=== PATIENT | female | born 1975 | race Caucasian/White ===

== ENCOUNTER 2017-03-03 00:30 | Emergency (ER) | payer OTHER ==
--- NOTE | 2017-03-03 00:34 | PDOC ---
History of Present Illness - General Chief Complaint: Pain, Acute Stated Complaint: UPPER ABDOMINAL PAIN Time Seen by Provider: 03/03/17 00:33 History Source: Patient Exam Limitations: No Limitations - History of Present Illness Initial Comments: 03/03/17 00:56 This is a 41-year-old female who comes in complaining of approximately 3 hours of abdominal pain. Patient has a history significant for Crohn's disease and had 4 bowel resections secondary to Crohn's disease. Patient has had several partial bowel obstructions as result of adhesions and her Crohn's disease as well. Patient comes in now complaining of lower abdominal pain that is consistent with obstruction secondary to her Crohn's disease however she is also complaining of some additional pain that is not typical for her in the epigastric area. Patient said pain is associated with nausea and vomiting 3. Patient has Percocet at home which she took for the pain but vomited it. PAST MEDICAL HISTORY: As per history of present illness PAST SURGICAL HISTORY: As per history of present illness FAMILY HISTORY: no pertinant history SOCIAL HISTORY: Pt lives with family and is employed. MEDICATIONS: reviewed ALLERGIES: As per nursing notes Review of Systems General: No fevers or chills, no weakness, no weight loss HEENT: No change in vision. No sore throat,. No ear pain CardioVascular: No chest pain or shortness of breath Respiratory:No cough, or wheezing. Gastrointestinal: Positive nausea, vomiting, abdominal pain. There is no diarrhea Genitourinary: No dysuria, hematuria, or frequency Musculoskeletal: No joint or muscle pain or swelling Neurologic: No headache, vertigo, dizziness or loss of consciousness Psychiatric: nor depression Skin: No rashes or easy bruising Endocrine: no increased thirst or abnormal weight change Allergic: no skin or latex allergy All other systems reviewed and normal Exam: General: Well-nourished well-developed individual, no acute distress HEENT: Throat: Normal, tonsils normal, no erythema or exudate Neck: Supple, no meningeal signs, no lymphadenopathy Eyes::Pupils equal reactive and round, extraocular motion intact Chest: Nontender to palpation Cardiac: S1-S2 normal, regular rate and rhythm, no murmurs rubs or gallops Respiratory: Lungs clear to auscultation bilateral Abdomen: Soft, nondistended, bowel sounds are present, there is tenderness on palpation lower abdomen without guarding or rebound in addition to that there is some mild tenderness epigastric area no guarding or rebound Extremities: Warm, dry, no cyanosis, clubbing, or edema Skin: No rashes Neuro: Alert and oriented x3, nonfocal exam, grossly intact, normal gait Psych: Normal mood and affect 03/03/17 02:04 Abdominal x-ray flat and upright no dilated loops of bowel paucity of air?? Constipation. Assessment and plan: This is a 41-year-old female who has a long history of Crohn's with multiple abdominal surgeries. Patient comes in complaining of severe abdominal pain. Patient was given pain medications and antiemetics and fluids and lab work was done. Patient's workup was negative for any acute pathology. Patient felt much better after medication and fluids. Patient tolerating by mouth's. Patient has a GI doctor that she can follow-up with tomorrow morning Patient discharged home Past History - Past Medical History Allergies/Adverse Reactions: Allergies Allergy/AdvReac Type Severity Reaction Status Date / Time NSAIDS (Non-Steroidal Allergy Verified 03/03/17 00:35 Anti-Inflamma sumatriptan [From Imitrex] Allergy Verified 03/03/17 00:36 sumatriptan succinate Allergy Verified 03/03/17 00:36 [From Imitrex] Home Medications: Ambulatory Orders Budesonide [ENTOCORT EC (Nf) -] 9 mg PO DAILY 03/03/17 Mercaptopurine [Purinethol -] 75 mg PO DAILY 03/03/17 Mesalamine [Apriso] 0.375 gm PO DAILY 03/03/17 ED Treatment Course - LABORATORY CBC & Chemistry Diagram: 03/03/17 01:23 03/03/17 00:45 *DC/Admit/Observation/Transfer Diagnosis at time of Disposition: Abdominal pain Qualifiers: Abdominal location: lower abdomen, unspecified Qualified Code(s): R10.30 - Lower abdominal pain, unspecified - Discharge Dispostion Disposition: HOME Condition at time of disposition: Stable Admit: No - Patient Instructions Additional Instructions: Continue your medications as prescribed. Call your GI doctor in the morning and follow-up with your doctor. Return to the emergency department immediately with ANY new, persistent or worsening symptoms. Continue any medications as previously prescribed by your physician. You should follow up with your primary doctor as soon as possible regarding today's emergency department visit. . Please make sure your doctor reviews the results of your emergency evaluation. Thank you for coming to the Emergency Department today for your care. It was a pleasure to see you today. Please note that your evaluation is INCOMPLETE until you follow-up with your doctor.
[2017-03-03] MEDS ORDERED: SODIUM CHLORIDE 1,000 ML IV ONE (00:44)
[2017-03-03] MEDS ORDERED: HYDROmorphone HCL CARPU-JECT 1 MG/1 ML DISP.SYRIN IVPUSH ONE ×2 (00:44→00:52)
[2017-03-03 00:50] VITALS: TEMP 98; BMI 21.1
[2017-03-03] MEDS ORDERED: ONDANSETRON 4 MG/2 ML VIAL IVPB ONE (00:54)
[2017-03-03] MEDS ORDERED: HYDROmorphone HCL CARPU-JECT 2 MG/1 ML DISP.SYRIN ONE (00:54)
[2017-03-03] MEDS ORDERED: HYDROmorphone HCL CARPU-JECT 1 MG/1 ML DISP.SYRIN ONE (00:55)
[2017-03-03] MEDS ORDERED: METOCLOPRAMIDE HCL INJECTION 10 MG/2 ML VIAL IVPUSH ONE (01:02)
[2017-03-03 01:40] LABS: BASOPHIL 1.2 % (0-2.0); EOSINOPHIL 0.8 % (0-4.5); MCH 32.4 pg (25.7-33.7); MCHC 33.6 g/dl (32.0-36.0); MEAN CELL VOLUME 96.5 fl (80-96); MEAN PLT VOLUME 7.6 fl (7.5-11.1); NEUTROPHILS 65.4 % (42.8-82.8); PLATELET COUNT 349 K/MM3 (134-434); RDW 14.6 % (11.6-15.6); WHITE BLOOD COUNT 6.8 K/mm3 (4.0-10.0)
[2017-03-03] MEDS ORDERED: ONDANSETRON 4 MG/2 ML VIAL ONE (01:48)
[2017-03-03] MEDS ORDERED: ONDANSETRON 4 MG/2 ML VIAL IVPUSH ONE (01:52)
[2017-03-03 01:56] VITALS: BP 116/59; PULSE 85
[2017-03-03 02:03] LABS: ALBUMIN 3.7 g/dl (3.4-5.0); ALK PHOS 50 U/L (45-117); ANION GAP 9 (8-16); BILIRUBIN,TOTAL 0.3 mg/dL (0.2-1.0); CALCIUM 9.2 mg/dL (8.5-10.1); CO2 25 mmol/L (21-32); CREATININE 0.6 mg/dL (0.55-1.02); GLUCOSE,RANDOM 112 mg/dL (74-106); SGOT/AST 30 U/L (15-37); SGPT/ALT 77 U/L (12-78); TOT PROT 6.5 g/dl (6.4-8.2)
[2017-03-03] MEDS ORDERED: ACETAMINOPHEN 325 MG TABLET (FP) PO PRN (10:33)
[2017-03-03] MEDS ORDERED: ONDANSETRON 4 MG/2 ML VIAL IVPB PRN (10:46)
[2017-03-03] MEDS ORDERED: METOCLOPRAMIDE HCL INJECTION 10 MG/2 ML VIAL IVPUSH PRN (11:04)
[2017-03-03] MEDS ORDERED: ACETAMINOPHEN 1000 MG/100 ML VIAL (NON FORMULARY) IVPB ONE (11:05)
[2017-03-03] MEDS ORDERED: LACTATED RINGERS SOLUTION 1,000 ML IV SCH (11:15)
--- NOTE | 2017-03-03 11:25 | HP ---
CHIEF COMPLAINT: Severe abdominal pain, vomiting PCP: GI: Dr. Nicole HISTORY OF PRESENT ILLNESS: This 41 year old pt presents for the second time in 24 hours with c/o abd pain 10/10 sharp pain with irretractable vomiting. she states she has a significant history of abd pain, Chron's, small bowel obstructions, intestional resections. She presented last evening where she received several doses of dilaudid, zofran , and IVF with an AXR to r/o obstruction. Pt refused CT of her abd because she "do not want radiation ~ my brother of leukemia induced by too many CT". She was then discharged to home feeling much better. Several hours later pt returned to ER with same complaints. She is requesting more dilaudid and something for nausea. when ER approached pt re: the need for a CT she again refused and requested a MRI. Her GI physician is associated with Dr. Bah who sees pt her and requested to see him Pt denies any fever, chills, diarrhea, but is found to be vomiting food particles (states last meal is yesterday evening ~ lasagna) I explained that in order to continue to treat her for her pain and vomiting we would need to do a CT and then she agreed to have one for evaluation of her abdomin pain. Her I stop is not noted for excess opiates in [facility]. she states she typically goes to [facility] in [place] and [facility] ER for her pain and evaluation of Er but her "GI doctor said to come here since he was affiliated" I have no tests or notes to compare patients symptoms and treatment course. ER course was notable for: (1) AXR neg for obstruction (2) zofran and dilaudid for pain (3) PAST MEDICAL HISTORY: PAST SURGICAL HISTORY: Social History: Smoking: Alcohol: Drugs: Family History: Allergies NSAIDS (Non-Steroidal Anti-Inflamma Allergy (Verified 03/03/17 05:10) sumatriptan [From Imitrex] Allergy (Verified 03/03/17 05:10) sumatriptan succinate [From Imitrex] Allergy (Verified 03/03/17 05:10) HOME MEDICATIONS: Home Medications Medication Instructions Recorded Budesonide [ENTOCORT EC (Nf) -] 9 mg PO DAILY 03/03/17 Mercaptopurine [Purinethol -] 75 mg PO DAILY 03/03/17 Mesalamine [Apriso] 0.375 gm PO DAILY 03/03/17 REVIEW OF SYSTEMS CONSTITUTIONAL: Absent: fever, chills, diaphoresis, generalized weakness, malaise, loss of appetite, weight change HEENT: Absent: rhinorrhea, nasal congestion, throat pain, throat swelling, difficulty swallowing, mouth swelling, ear pain, eye pain, visual changes CARDIOVASCULAR: Absent: chest pain, syncope, palpitations, irregular heart rate, lightheadedness , peripheral edema RESPIRATORY: Absent: cough, shortness of breath, dyspnea with exertion, orthopnea, wheezing, stridor, hemoptysis GASTROINTESTINAL: Absent: abdominal pain, abdominal distension, nausea, vomiting, diarrhea, constipation, melena, hematochezia GENITOURINARY: Absent: dysuria, frequency, urgency, hesitancy, hematuria, flank pain, genital pain MUSCULOSKELETAL: Absent: myalgia, arthralgia, joint swelling, back pain, neck pain SKIN: Absent: rash, itching, pallor HEMATOLOGIC/IMMUNOLOGIC: Absent: easy bleeding, easy bruising, lymphadenopathy, frequent infections ENDOCRINE: Absent: unexplained weight gain, unexplained weight loss, heat intolerance, cold intolerance NEUROLOGIC: Absent: headache, focal weakness or paresthesias, dizziness, unsteady gait, seizure, mental status changes, bladder or bowel incontinence PSYCHIATRIC: Absent: anxiety, depression, suicidal or homicidal ideation, hallucinations. PHYSICAL EXAMINATION Vital Signs - 24 hr 03/03/17 03/03/17 00:44 01:55 Temperature 98 F Pulse Rate 80 Pulse Rate [ 85 Left] Respiratory 18 16 Rate Blood Pressure 129/78 Blood Pressure 116/59 [Left] O2 Sat by Pulse 100 100 Oximetry (%) GENERAL: Awake, alert, and fully oriented, in no acute distress. HEAD: Normal with no signs of trauma. EYES: Pupils equal, round and reactive to light, extraocular movements intact, sclera anicteric, conjunctiva clear. No lid lag. EARS, NOSE, THROAT: Ears normal, nares patent, oropharynx clear without exudates. Moist mucous membranes. NECK: Normal range of motion, supple without lymphadenopathy, JVD, or masses. LUNGS: Breath sounds equal, clear to auscultation bilaterally. No wheezes, and no crackles. No accessory muscle use. HEART: Regular rate and rhythm, normal S1 and S2 without murmur, rub or gallop. ABDOMEN: Soft, nontender, not distended, normoactive bowel sounds, no guarding, no rebound, no masses. No hepatomegaly or splenomegaly. MUSCULOSKELETAL: Normal range of motion at all joints. No bony deformities or tenderness. No CVA tenderness. UPPER EXTREMITIES: 2+ pulses, warm, well-perfused. No cyanosis. No clubbing. No peripheral edema. LOWER EXTREMITIES: 2+ pulses, warm, well-perfused. No calf tenderness. No peripheral edema. NEUROLOGICAL: Cranial nerves II-XII intact. Normal speech. Normal gait. PSYCHIATRIC: Cooperative. Good eye contact. Appropriate mood and affect. SKIN: Warm, dry, normal turgor, no rashes or lesions noted, normal capillary refill. Laboratory Results - last 24 hr 03/03/17 03/03/17 03/03/17 00:45 01:23 01:23 WBC 6.8 RBC 4.04 Hgb 13.1 Hct 39.0 MCV 96.5 H MCH 32.4 MCHC 33.6 RDW 14.6 Plt Count 349 MPV 7.6 Neutrophils % 65.4 Lymphocytes % 25.9 Monocytes % 6.7 Eosinophils % 0.8 Basophils % 1.2 Sodium 140 Potassium 4.0 Chloride 106 Carbon Dioxide 25 Anion Gap 9 BUN 11 Creatinine 0.6 Creat Clearance w eGFR > 60 Random Glucose 112 H Calcium 9.2 Total Bilirubin 0.3 AST 30 ALT 77 Alkaline Phosphatase 50 Total Protein 6.5 Albumin 3.7 Lipase 147 ASSESSMENT/PLAN: 1. Epigastric pain -CT with po/IV contrast -NPO -avoid opiates use -IVF -protonix -admit observation -follow up with GI Problem List - Problem (1) Abdominal pain Assessment/Plan: -CT of abd with IV/PO contrast. -IVF -NPO -Reglan for nausea vomiting -GI Dr. Bah consult -Limit opiates until resulted reasoning for abd pain. -observation admission only -pt seems to be demanding her care and treatment, team needs to be consistent until reaching conclusion for Code(s): R10.9 - UNSPECIFIED ABDOMINAL PAIN Qualifiers: Abdominal location: epigastric Qualified Code(s): R10.13 - Epigastric pain Visit type - Emergency Visit Emergency Visit: Yes Care time: The patient presented to the Emergency Department on the above date and was hospitalized for further evaluation of their emergent condition. - New Patient This patient is new to me today: Yes Date on this admission: 03/03/17 - Critical Care Critical Care patient: No
--- NOTE | 2017-03-03 12:51 | PN ---
Progress Note (short form) - Note Progress Note: Patient is a 41 yo female with hx of Crohn's disease followed by Dr Frank Nicole in [place] ([phone]); admitted with abdominal pain and vomiting. Has been on Apriso and 6 MP. Recent workup (per Dr. Nicole) has included C diff - , O&P -, and normal CRP level. Currently being admitted via ED with upper abdominal pain, normal labs and AXR. CT pending. Patient requesting pain meds and anti-emetics. Dr. Nicole aware and will be in to see patient later today.
[2017-03-04] MEDS ORDERED: PANTOPRAZOLE 40 MG TABLET (FP) PO SCH (10:00)
== END 2017-03-03 02:10 | disposition home or self-care (01) ==
LOC: FER 00:30
PROC: 3E033GC Introduction of Other Therapeutic Substance into Peripheral Vein, Percutaneous Approach (ICD-10-PCS; principal; 2017-03-03)
PROC: 3E033NZ Introduction of Analgesics, Hypnotics, Sedatives into Peripheral Vein, Percutaneous Approach (ICD-10-PCS; 2017-03-03)
PROC: 3E0337Z Introduction of Electrolytic and Water Balance Substance into Peripheral Vein, Percutaneous Approach (ICD-10-PCS; 2017-03-03)
DX: R10.30 Lower abdominal pain, unspecified (principal); K50.90 Crohn's disease, unspecified, without complications
CPT/HCPCS: 36415; 74020-TC; 80053; 83690; 85025; 99282-25

== ENCOUNTER 2017-03-03 04:59 | Emergency (ER) | payer OTHER ==
--- NOTE | 2017-03-03 05:14 | PDOC ---
History of Present Illness - General Chief Complaint: Pain, Acute Stated Complaint: UPPER ABDOMINAL PAIN Time Seen by Provider: 03/03/17 05:14 History Source: Patient Exam Limitations: No Limitations - History of Present Illness Initial Comments: 03/03/17 05:22 This is a 41-year-old female who comes in complaining of severe abdominal pain that is crampy lower pain and sharp upper pain. Patient was just discharged from this facility for a workup approximately 3 hours ago. Patient has history significant for multiple abdominal surgeries secondary to her Crohn's disease. Patient said pain is associated with nausea. Patient was here before was medicated able to tolerate by mouth's given fluids and I had a completely normal workup. Including normal white count and normal chemistries and a flat and upright did not show any evidence of obstruction at this time. Patient however went home said she was comfortable and then the pain came back acutely. Patient now returns to the ER. PAST MEDICAL HISTORY: Crohn's disease PAST SURGICAL HISTORY: Multiple abdominal surgeries FAMILY HISTORY: no pertinant history SOCIAL HISTORY: Pt lives with family and is employed. MEDICATIONS: reviewed ALLERGIES: As per nursing notes Review of Systems General: No fevers or chills, no weakness, no weight loss HEENT: No change in vision. No sore throat,. No ear pain CardioVascular: No chest pain or shortness of breath Respiratory:No cough, or wheezing. Gastrointestinal: no nausea, vomitting, diarrhea or constipation, No rectal bleeding Genitourinary: No dysuria, hematuria, or frequency Musculoskeletal: No joint or muscle pain or swelling Neurologic: No headache, vertigo, dizziness or loss of consciousness Psychiatric: nor depression Skin: No rashes or easy bruising Endocrine: no increased thirst or abnormal weight change Allergic: no skin or latex allergy All other systems reviewed and normal Exam: General: Well-nourished well-developed individual, in moderate distress HEENT: Throat: Normal, tonsils normal, no erythema or exudate Neck: Supple, no meningeal signs, no lymphadenopathy Eyes::Pupils equal reactive and round, extraocular motion intact Chest: Nontender to palpation Cardiac: S1-S2 normal, regular rate and rhythm, no murmurs rubs or gallops Respiratory: Lungs clear to auscultation bilateral Abdomen: Soft, nondistended, decreased bowel sounds, tender to palpation across lower abdomen there is no guarding or rebound. There are multiple surgical scars on the lower back abdomen primarily midline between umbilicus and pubic area as well as in the suprapubic area. Extremities: Warm, dry, no cyanosis, clubbing, or edema Skin: No rashes Neuro: Alert and oriented x3, nonfocal exam, grossly intact, normal gait Psych: Normal mood and affect Patient states that she has had multiple CAT scans and has been advised that she should not have any more CAT scans secondary to excess doses of radiation to her abdominal and pelvic areas put her at increased risk for cancers. Patient had a plain film flat and upright were she was here several hours ago that was negative for any acute pathology. Patient was unable to give a urine at that time and deferred the test as she said there is no possibility that she could be . Patient again says she wants to defer test if she needs any x-rays or MRI. I will do an MRI this morning as there is no radiation involved in the MRI. Labs were not repeated at this time as they were just done a few hours ago. And were normal 03/03/17 07:00 Care of this patient was transferred to at 7 AM. This is a 41-year-old female with long history of Crohn's disease with multiple bowel resections and bowel obstructions and partial obstruction secondary to the here he should from her multiple surgeries. Patient primary care and [place] Patient was here earlier in the evening and seen and evaluated by me. Post being given Dilaudid for her pain and some fluids patient felt much better and her workup was normal. A CAT scan was not done however her plane firms were not suggestive of any acute pathology. Approximately 3-4 hours after discharge patient returned again with pain and vomiting. Patient has had multiple CAT scans I do not want to give her any further radiation to her pelvic area. Patient will need a MRI this morning to rule out partial obstruction, obstruction, abdominal pathology. Case discussed in detail with oncoming Emergency Physician including history, physical exam and ancillary studies. Oncoming Emergency Physician has assumed care for the patient and will complete the evaluation and treatment. Patient is aware of the plan. Pt is clinically unchanged and stable. Past History - Past Medical History Allergies/Adverse Reactions: Allergies Allergy/AdvReac Type Severity Reaction Status Date / Time NSAIDS (Non-Steroidal Allergy Verified 03/03/17 05:10 Anti-Inflamma sumatriptan [From Imitrex] Allergy Verified 03/03/17 05:10 sumatriptan succinate Allergy Verified 03/03/17 05:10 [From Imitrex] Home Medications: Ambulatory Orders Budesonide [ENTOCORT EC (Nf) -] 9 mg PO DAILY 03/03/17 Mercaptopurine [Purinethol -] 75 mg PO DAILY 03/03/17 Mesalamine [Apriso] 0.375 gm PO DAILY 03/03/17 - Suicide/Smoking/Psychosocial Hx Smoking History: Never smoked Have you smoked in the past 12 months: No Hx Alcohol Use: No Drug/Substance Use Hx: No Substance Use Type: None *DC/Admit/Observation/Transfer Diagnosis at time of Disposition: Abdominal pain Qualifiers: Abdominal location: unspecified location Qualified Code(s): R10.9 - Unspecified abdominal pain - Discharge Dispostion Condition at time of disposition: Stable
[2017-03-03] MEDS ORDERED: HYDROmorphone HCL CARPU-JECT 1 MG/1 ML DISP.SYRIN IVPUSH ONE ×4 (05:15→12:21)
[2017-03-03] MEDS ORDERED: SODIUM CHLORIDE 1,000 ML IV ONE (05:16)
[2017-03-03] MEDS ORDERED: ONDANSETRON 4 MG/2 ML VIAL IVPB ONE (05:16)
[2017-03-03 05:57] VITALS: BMI 21.1
[2017-03-03] MEDS ORDERED: HYDROmorphone HCL CARPU-JECT 2 MG/1 ML DISP.SYRIN IVPUSH ONE (08:12)
[2017-03-03] MEDS ORDERED: ONDANSETRON 4 MG/2 ML VIAL IVPUSH ONE (08:13)
[2017-03-03] MEDS ORDERED: HYDROmorphone HCL CARPU-JECT 2 MG/1 ML DISP.SYRIN ONE (08:21)
[2017-03-03] MEDS ORDERED: ONDANSETRON 4 MG/2 ML VIAL ONE (08:21)
[2017-03-03] MEDS ORDERED: HYDROmorphone HCL CARPU-JECT 1 MG/1 ML DISP.SYRIN ONE (08:56)
--- NOTE | 2017-03-03 10:12 | PDOC ---
*Physical Exam - Vital Signs Last Vital Signs Temp Pulse Resp BP Pulse Ox 99.0 F 87 18 122/67 98 03/03/17 09:33 03/03/17 09:33 03/03/17 09:33 03/03/17 09:33 03/03/17 09:33 ED Treatment Course - Medications Given in the ED: ED Medications Discontinued Medications Generic Name Dose Route Start Last Admin Trade Name Amy PRN Reason Stop Dose Admin Diphenhydramine HCl 25 mg 03/03/17 05:16 03/03/17 05:20 Benadryl Injection - IVPUSH 03/03/17 05:17 25 mg ONCE ONE Administration Hydromorphone HCl 2 mg 03/03/17 05:15 03/03/17 05:20 Dilaudid Injection - IVPUSH 03/03/17 05:16 2 mg ONCE ONE Administration Hydromorphone HCl 1 mg 03/03/17 05:36 03/03/17 05:49 Dilaudid Injection - IVPUSH 03/03/17 05:37 1 mg ONCE ONE Administration Hydromorphone HCl 2 mg 03/03/17 08:12 03/03/17 08:30 Dilaudid Injection - IVPUSH 03/03/17 08:13 2 mg ONCE ONE Administration Hydromorphone HCl 1 mg 03/03/17 08:45 03/03/17 09:00 Dilaudid Injection - IVPUSH 03/03/17 08:46 1 mg ONCE ONE Administration Sodium Chloride 1,000 mls @ 250 mls/hr 03/03/17 05:16 03/03/17 05:43 Normal Saline - IV 03/03/17 09:15 250 mls/hr .Q1H ONE Administration Ondansetron HCl 8 mg 03/03/17 05:16 03/03/17 05:20 Zofran Injection IVPB 03/03/17 05:17 8 mg ONCE ONE Administration Ondansetron HCl 4 mg 03/03/17 08:13 03/03/17 08:30 Zofran Injection IVPUSH 03/03/17 08:14 4 mg ONCE ONE Administration Medical Decision Making - Medical Decision Making 03/03/17 10:10 Pt reassessed at 9AM - reports persistent abdominal pain despite getting multiple doses of dilaudid IV. Abdominal XR unremarkable. Pt refusing CT to r/o obstruction, though she states that she feels as though she is obstructed. Will admit pt at this time for intractable abdominal pain and possible MRI to r/ o acute abdominal process. Attempted to call Dr. Nicole, pt's GI doctor, but went to voicemail. Page sent out through answering service. Awaiting callback. 03/03/17 11:03 After further discussion, pt has consented to CT scan. *DC/Admit/Observation/Transfer Diagnosis at time of Disposition: Abdominal pain Qualifiers: Abdominal location: unspecified location Qualified Code(s): R10.9 - Unspecified abdominal pain - Discharge Dispostion Condition at time of disposition: Stable Admit: Yes Decision to Admit order Date/Time: Decision to Admit Order Category Date Time Status Decision to Admit to Hospital Routine Admission 03/03/17 09:07 Active - Referrals Referrals: Frank Nicole MD [Primary Care Provider] - - Patient Instructions - Post Discharge Activity
[2017-03-03] MEDS ORDERED: PANTOPRAZOLE SODIUM 40 MG in SODIUM CHLORIDE 100 ML IVPB ONE (11:18)
[2017-03-03] MEDS ORDERED: PANTOPRAZOLE SODIUM 40 MG VIAL ONE (11:27)
[2017-03-03 13:10] LABS: URINE BILIRUBIN Negative (NEGATIVE); URINE GLUCOSE (UA) Negative (NEGATIVE); URINE KETONE 1+ (NEGATIVE); URINE NITRITE Positive (NEGATIVE); URINE PROTEIN Negative (NEGATIVE); URINE UROBILINOGEN 0.2 (0.2-1.0)
[2017-03-03 13:12] LABS: URINE APPEARANCE SL CLOUDY; URINE BLOOD Trace-intact (NEGATIVE); URINE COLOR YELLOW; URINE LEUK ESTERASE TRACE (NEGATIVE)
[2017-03-03] MEDS ORDERED: METOCLOPRAMIDE HCL INJECTION 10 MG/2 ML VIAL IVPB ONE (13:37)
[2017-03-03] MEDS ORDERED: METOCLOPRAMIDE HCL INJECTION 10 MG/2 ML VIAL IVPB PRN (13:40)
[2017-03-03] MEDS ORDERED: ACETAMINOPHEN 325 MG TABLET (FP) PO PRN (13:40)
[2017-03-03 13:41] LABS: URINE BACTERIA MANY /hpf (NEGATIVE)
[2017-03-03] MEDS ORDERED: LACTATED RINGERS SOLUTION 1,000 ML IV SCH (13:45)
[2017-03-03 14:24] LABS: URINE MARIJUANA THC NEGATIVE ng/ml (CUTOFF=50)
--- NOTE | 2017-03-03 17:54 | CONSULT ---
Consult Consult Specialty:: Gastroenterology Reason for Consultation:: Abdominal pain - History of Present Illness Chief Complaint: Abdominal pain and vomiting History of Present Illness: 41 y.o,. female with a long history of Crohn's disease of both the small and large bowel. She presented a number of years ago with an abdominal abscess and a fistula. Under went surgery x 2 and placed on Remicade. Eventually improved after surgery except for an SBO that required revision of her anastomosis. Last year she had a brief episode of an SBO that was treated medically. Since then she did well on Apriso 375 mg, 4 tab AM and mercaptopurine 50 mg daily. It was recently increased to 75 mg daily as her blood levels of 6TG were too low. Two weeks ago she began to have episodes of abdominal pain and diarrhea. Labs sent from my office last week showed a normal WBC, sed rate, CRP and stool calprotectin. Her stool for C. difficile toxin was also negative. She developed increased abdominal pain last night and was seen at the [place] ED. Her labs were unremarkable and she was given analgesics. She left improved, but soon afterward she developed recurrent severe epigastric and pelvic pain and she returned to the ED. No fever, chills or rectal bleeding. Dr. Gary Bah saw her earlier today for me and ordered a CT scan of the abdomen /pelvis with IV contrast which was normal except for some fluid in the pelvis in the area of the RLQ and an involuted L ovarian cyst. - History Source History Provided By: Patient Limitations to Obtaining History: No Limitations - Past Medical History Gastrointestinal: Yes: Crohn's Disease, Peptic Ulcer Disease - Past Surgical History Additional Surgical History: Surgical drainage of a pelvic abscess, surgical removal of ileo-colonic fistual and surgical revision of ileo-colonic anastamosis. - Alcohol/Substance Use Hx Alcohol Use: No History of Substance Use: reports: None - Smoking History Smoking history: Never smoked Have you smoked in the past 12 months: No - Social History Usual Living Arrangement: With Spouse ADL: Independent Place of : [facility] History of Recent Travel: No Home Medications - Allergies Allergies/Adverse Reactions: Allergies Allergy/AdvReac Type Severity Reaction Status Date / Time NSAIDS (Non-Steroidal Allergy Verified 03/03/17 05:10 Anti-Inflamma sumatriptan [From Imitrex] Allergy Verified 03/03/17 05:10 sumatriptan succinate Allergy Verified 03/03/17 05:10 [From Imitrex] - Home Medications Home Medications: Ambulatory Orders Budesonide [ENTOCORT EC (Nf) -] 9 mg PO DAILY 03/03/17 Mercaptopurine [Purinethol -] 75 mg PO DAILY 03/03/17 Mesalamine [Apriso] 0.375 gm PO DAILY 03/03/17 Family Disease History - Family Disease History Family Disease History: Other: Brother (Leukemia) Review of Systems - Review of Systems Gastrointestinal: reports: Abdominal Pain, Nausea, Vomiting Physical Exam Vital Signs: Vital Signs Temperature 99.0 F 03/03/17 09:33 Pulse Rate 87 03/03/17 09:33 Respiratory Rate 18 03/03/17 09:33 Blood Pressure 122/67 03/03/17 09:33 O2 Sat by Pulse Oximetry (%) 98 03/03/17 09:33 Constitutional: Yes: Well Nourished, Anxious HENT: Yes: WNL Neck: Yes: WNL Cardiovascular: Yes: Regular Rate and Rhythm Respiratory: Yes: WNL, Regular, CTA Bilaterally Gastrointestinal: Yes: Normal Bowel Sounds, Soft, Tenderness, Epigastrium, Other (Well healed RLQ scar) Musculoskeletal: Yes: WNL Extremities: Yes: WNL Edema: No Integumentary: Yes: WNL Neurological: Yes: WNL ...Motor Strength: WNL Psychiatric: Yes: WNL Imaging - Results X-ray: Report Reviewed Cat Scan: Report Reviewed Problem List - Problems (1) Abdominal pain Code(s): R10.9 - UNSPECIFIED ABDOMINAL PAIN Qualifiers: Abdominal location: epigastric Qualified Code(s): R10.13 - Epigastric pain (2) Crohn's disease Code(s): K50.90 - CROHN'S DISEASE, UNSPECIFIED, WITHOUT COMPLICATIONS Qualifiers: Gastrointestinal tract location: small and large intestine Digestive disease complication type: unspecified complication Qualified Code(s): K50.819 - Crohn's disease of both small and large intestine with unspecified complications Assessment/Plan The patient had unremarkable lab tests and x-rays. The pelvic fluid is an old finding. There is no obstruction or abscess and no evidence of active Crohn's disease. She may have an ucler and she has a history of PUD in the past. I will start her on omeprazole 20 mg daily and add Reglan for her nausea with office follow up.
--- NOTE | 2017-03-03 18:16 | DS ---
Physical Examination Vital Signs: Vital Signs Temperature 99.0 F 03/03/17 09:33 Pulse Rate 87 03/03/17 09:33 Respiratory Rate 18 03/03/17 09:33 Blood Pressure 122/67 03/03/17 09:33 O2 Sat by Pulse Oximetry (%) 98 03/03/17 09:33 Gastrointestinal: Yes: Tenderness (Mild epigastric and suprapubic tenderness) Discharge Summary Reason For Visit: UPPER ABDOMINAL PAIN Current Active Problems Abdominal pain (Acute) Crohn's disease (Acute) Hospital Course: Labs and x-rays were unremarkable. Her symptoms improved after anti-emetics and analgesics. Condition: Improved - Instructions Diet, Activity, Other Instructions: Resume previous diet. Referrals: Frank Nicole MD [Primary Care Provider] - Disposition: HOME - Home Medications Comprehensive Discharge Medication List: Ambulatory Orders Budesonide [ENTOCORT EC (Nf) -] 9 mg PO DAILY 03/03/17 Mercaptopurine [Purinethol -] 75 mg PO DAILY 03/03/17 Mesalamine [Apriso] 0.375 gm PO DAILY 03/03/17 omeprazole 20 mg q AM metoclopramide 10 mg a.c. prn nasuea
[2017-03-03 18:31] VITALS: BP 120/73; PULSE 76; TEMP 98.6
--- NOTE | 2017-03-04 20:40 | EKG ---
Test Reason : Blood Pressure : / mmHG Vent. Rate : 078 BPM Atrial Rate : 078 BPM P-R Int : 124 ms QRS Dur : 080 ms QT Int : 378 ms P-R-T Axes : 076 071 051 degrees QTc Int : 430 ms NORMAL SINUS RHYTHM NORMAL ECG NO PREVIOUS ECGS AVAILABLE REPEAT EKG IF CLINICALLY INDICATED Confirmed by NORAH MORRIS MD ([id number]) on 03/04/2017 8:40:30 PM Referred By: MD STATON Confirmed By:NORAH MORRIS MD
== END 2017-03-03 18:46 | disposition home or self-care (01) ==
LOC: FER 04:59
PROC: 3E033NZ Introduction of Analgesics, Hypnotics, Sedatives into Peripheral Vein, Percutaneous Approach (ICD-10-PCS; principal; 2017-03-03)
PROC: 3E033GC Introduction of Other Therapeutic Substance into Peripheral Vein, Percutaneous Approach (ICD-10-PCS; 2017-03-03)
PROC: 3E0337Z Introduction of Electrolytic and Water Balance Substance into Peripheral Vein, Percutaneous Approach (ICD-10-PCS; 2017-03-03)
DX: R10.9 Unspecified abdominal pain (principal); K50.819 Crohn's disease of both small and large intestine with unspecified complications
CPT/HCPCS: 74177-TC; 80307; 81003; 81015; 84703; 87086; 87186; 93005; 99283-25

== ENCOUNTER 2017-03-16 21:35 | Emergency (ER) | payer OTHER ==
[2017-03-16 21:47] VITALS: TEMP 97.9; BMI 21.4
[2017-03-16] MEDS ORDERED: HYDROmorphone HCL CARPU-JECT 2 MG/1 ML DISP.SYRIN IVPB ONE ×2 (21:50→23:18)
[2017-03-16] MEDS ORDERED: ONDANSETRON 4 MG/2 ML VIAL IVPUSH ONE (21:52)
--- NOTE | 2017-03-16 21:55 | PDOC ---
History of Present Illness - General History Source: Patient Exam Limitations: No Limitations - History of Present Illness Initial Comments: 03/16/17 21:55 The patient is a 41 year old female with a significant past medical history of Crohn's Disease, hernia (in 2012), who presents to the ED with lower abdominal pain, nausea, and vomiting. Patient states she has been experiencing the pain throughout the day but the nausea/vomiting began after eating a slice of pizza at 8:30 PM. Patient states she has had prior similar episodes the past few months due to her Crohn's Disease. Patient has a colonoscopy and endoscopy scheduled for Friday. Patient had a Vicodin with little to no alleviation. Patient denies diarrhea, hematochezia. Patient denies fever, chills. GI: Frank Nicole <Abdoul Armas - Last Filed: 03/16/17 21:58> <Deborah Black - Last Filed: 03/17/17 06:31> - General Chief Complaint: Pain, Acute Stated Complaint: INTESTINAL OBSTRUCTION Time Seen by Provider: 03/16/17 21:41 Past History <Abdoul Armas - Last Filed: 03/16/17 21:58> - Past Medical History Other medical history: STATES SHE HAS CROHNS - Suicide/Smoking/Psychosocial Hx Smoking History: Never smoked Have you smoked in the past 12 months: No Information on smoking cessation initiated: No Hx Alcohol Use: No Drug/Substance Use Hx: No Substance Use Type: None <Deborah Black - Last Filed: 03/17/17 06:31> - Past Medical History Allergies/Adverse Reactions: Allergies Allergy/AdvReac Type Severity Reaction Status Date / Time NSAIDS (Non-Steroidal Allergy Verified 03/16/17 21:38 Anti-Inflamma sumatriptan [From Imitrex] Allergy Verified 03/16/17 21:38 sumatriptan succinate Allergy Verified 03/16/17 21:38 [From Imitrex] Home Medications: Ambulatory Orders Budesonide [ENTOCORT EC (Nf) -] 9 mg PO DAILY 03/03/17 Mercaptopurine [Purinethol -] 75 mg PO DAILY 03/03/17 Mesalamine [Apriso] 0.375 gm PO DAILY 03/03/17 Hydromorphone [Dilaudid -] 2 mg PO Q6H PRN #10 tablet MDD 3 tabs 03/17/17 Review of Systems - Review of Systems Able to Perform ROS?: Yes Comments:: 03/16/17 21:55 GENERAL/CONSTITUTIONAL: No fever or chills. No weakness. HEAD, EYES, EARS, NOSE AND THROAT: No change in vision. No ear pain or discharge. No sore throat. CARDIOVASCULAR: No chest pain or shortness of breath. RESPIRATORY: No cough, wheezing, or hemoptysis. GASTROINTESTINAL: + lower abdominal + nausea + vomiting. No diarrhea or constipation. GENITOURINARY: No dysuria, frequency, or change in urination. MUSCULOSKELETAL: No joint or muscle swelling or pain. No neck or back pain. SKIN: No rash NEUROLOGIC: No headache, vertigo, loss of consciousness, or change in strength/ sensation. ENDOCRINE: No increased thirst. No abnormal weight change. HEMATOLOGIC/LYMPHATIC: No anemia, easy bleeding, or history of blood clots. ALLERGIC/IMMUNOLOGIC: No hives or skin allergy. <Abdoul Armas - Last Filed: 03/16/17 21:58> *Physical Exam - Vital Signs Last Vital Signs Temp Pulse Resp BP Pulse Ox 97.9 F 83 18 132/71 100 03/16/17 21:42 03/16/17 21:42 03/16/17 21:42 03/16/17 21:42 03/16/17 21:42 - Physical Exam Comments: 03/16/17 21:55 GENERAL: The patient is awake, alert, and fully oriented, in no acute distress. HEAD: Normal with no signs of trauma. EYES: Pupils equal, round and reactive to light, extraocular movements intact, sclera anicteric, conjunctiva clear with no pallor. ENT: Ears normal, nares patent, oropharynx clear without exudates. Moist mucous membranes. NECK: Normal range of motion, supple without lymphadenopathy, JVD, or masses. LUNGS: Breath sounds equal, clear to auscultation bilaterally. No wheeze/ crackles. HEART: Regular rate and rhythm, normal S1 and S2 without murmur or rub. ABDOMEN: Normal active bowel sounds. Bilateral lower quadrant moderate tenderness right greater than left. Mild epigastric tenderness. No guarding, no rebound, no masses. EXTREMITIES: Normal range of motion, no edema. No clubbing or cyanosis. No cords , erythema, or tenderness. NEUROLOGICAL: Cranial nerves II through XII grossly intact. Normal speech, normal gait. PSYCH: Normal mood, normal affect. SKIN: Warm, Dry, normal turgor, no rashes or lesions noted. <Abdoul Armas - Last Filed: 03/16/17 21:58> - Vital Signs Last Vital Signs Temp Pulse Resp BP Pulse Ox 97.9 F 83 18 132/71 100 03/16/17 21:42 03/16/17 21:42 03/16/17 21:42 03/16/17 21:42 03/16/17 21:42 <Deborah Black - Last Filed: 03/17/17 06:31> ED Treatment Course - LABORATORY CBC & Chemistry Diagram: 03/16/17 22:00 03/16/17 22:00 <Deborah Black - Last Filed: 03/17/17 06:31> Progress Note - Progress Note Progress Note: Documentation has been prepared under my direction and personally reviewed by me in its entirety. I attest that this documented accurately reflects all work, treatment, procedures and medical decision making performed by me. <Deborah Black - Last Filed: 03/17/17 06:31> Medical Decision Making - Medical Decision Making As noted above, this 41-year-old woman with a history of Crohn's disease and unexplained abdominal pain for the last several months presents with several hour history of progressive lower abdominal pain (usual pattern) with some nausea and vomiting. Exam as noted shows normal active bowel sounds and some tenderness but no distention. Patient given a liter of fluid (normal saline) and Dilaudid/Benadryl/ZofranIV No significant abnormality . Lab evaluation. Patient has significant relief after pain medication/antihistamine/antiemetic. The patient is scheduled to have colonoscopy this March 21. She asked for prescription for Dilaudid 2 mg (#10) to be used as needed for severe pain until she has her procedure. The patient had this prescribed several years ago for her abdominal pain. These medications have <Deborah Black - Last Filed: 03/17/17 06:31> *DC/Admit/Observation/Transfer - Attestations Scribe Attestion: 03/16/17 21:56 Documentation prepared by Abdoul Armas, acting as medical radiation tech for Deborah Black MD. <Abdoul Armas - Last Filed: 03/16/17 21:58> <Deborah Black - Last Filed: 03/17/17 06:31> Diagnosis at time of Disposition: Crohn's disease Qualifiers: Gastrointestinal tract location: small intestine Digestive disease complication type: without complication Qualified Code(s): K50.00 - Crohn's disease of small intestine without complications Abdominal pain Qualifiers: Abdominal location: lower abdomen, unspecified Qualified Code(s): R10.30 - Lower abdominal pain, unspecified - Discharge Dispostion Disposition: HOME Condition at time of disposition: Stable - Prescriptions Prescriptions: Hydromorphone [Dilaudid -] 2 mg PO Q6H PRN #10 tablet MDD 3 tabs PRN Reason: Severe Pain - Referrals Referrals: Frank Nicole MD [Primary Care Provider] - - Patient Instructions Printed Discharge Instructions: DI for Abdominal Pain-Adult Additional Instructions: Continue medications as prescribed Dilaudid 2 mg every 6 hours as needed for severe pain (up to 3 tablets per day) Return to ER if you have continued severe pain or develop persistent vomiting Follow-up with as scheduled later this week
[2017-03-16] MEDS ORDERED: SODIUM CHLORIDE 1,000 ML IV STA (22:01)
[2017-03-16 22:11] LABS: BASOPHIL 1.3 % (0-2.0)
[2017-03-16 22:14] LABS: EOSINOPHIL 0.3 % (0-4.5); MCH 33.8 pg (25.7-33.7); MCHC 34.8 g/dl (32.0-36.0); MEAN CELL VOLUME 97.1 fl (80-96); MEAN PLT VOLUME 7.6 fl (7.5-11.1); NEUTROPHILS 79.9 % (42.8-82.8); PLATELET COUNT 363 K/MM3 (134-434); RDW 14.5 % (11.6-15.6); WHITE BLOOD COUNT 10.1 K/mm3 (4.0-10.8)
[2017-03-16 22:20] LABS: ALBUMIN 4.1 g/dl (3.5-5.0); ALK PHOS 42 U/L (32-92); ANION GAP 7 (8-16); BILIRUBIN,TOTAL 0.2 mg/dl (0.2-1.0); CO2 26 mmol/L (22-28); CREATININE 0.6 mg/dl (0.6-1.3); GLUCOSE,RANDOM 107 mg/dl (74-106); SGOT/AST 17 U/L (10-42); SGPT/ALT 19 U/L (10-40); TOT PROT 6.4 g/dl (6.4-8.3)
[2017-03-16] MEDS ORDERED: HYDROmorphone HCL CARPU-JECT 1 MG/1 ML DISP.SYRIN ONE (23:33)
[2017-03-16] MEDS ORDERED: HYDROmorphone HCL CARPU-JECT 2 MG/1 ML DISP.SYRIN ONE (23:33)
[2017-03-17 00:01] VITALS: BP 125/66; PULSE 76
== END 2017-03-17 00:25 | disposition home or self-care (01) ==
LOC: FER 21:35
PROC: 3E033GC Introduction of Other Therapeutic Substance into Peripheral Vein, Percutaneous Approach (ICD-10-PCS; principal; 2017-03-16)
PROC: 3E033NZ Introduction of Analgesics, Hypnotics, Sedatives into Peripheral Vein, Percutaneous Approach (ICD-10-PCS; 2017-03-16)
PROC: 3E033GC Introduction of Other Therapeutic Substance into Peripheral Vein, Percutaneous Approach (ICD-10-PCS; 2017-03-16)
DX: R10.30 Lower abdominal pain, unspecified (principal); K50.00 Crohn's disease of small intestine without complications
CPT/HCPCS: 36415; 80053; 85025; 99281-25

== ENCOUNTER 2017-09-17 23:47 | Emergency (ER) | payer OTHER ==
--- NOTE | 2017-09-17 23:51 | PDOC ---
History of Present Illness - General Chief Complaint: Pain Stated Complaint: ABD PAIN Time Seen by Provider: 09/17/17 23:50 History Source: Patient Exam Limitations: No Limitations - History of Present Illness Initial Comments: 09/18/17 00:04 This is a 42-year-old female who comes in complaining of abdominal pain nausea and vomiting. Patient has been to this institution 3 other times back in March During which she received large doses of Dilaudid and had negative workups. Patient comes in today saying that she had acute onset of abdominal pain and is associated with nausea and vomiting. Patient says she is unable to keep anything down patient denies any fevers or chills. Patient denies any diarrhea. Patient has had 4 surgeries for her Crohn's disease in the past and does have associated adhesions. Patient was supposed to see a surgeon but had not had a flare of her pain in approximately 3 months and so did not follow up with a surgeon. Patient's GI doctor is Dr. Nicole who she follows up with. I did discuss with Dr. Nicole who recommended that we give her 1 mg of Dilaudid and do a workup to rule out any infectious or obstruction. Dr. Nicole said he did give her a prescription for 90 tablets of Vicodin on September 03. So patient does have pain medication at home that if her workup is negative that he feel she should be able to go home and manage her pain at home. PAST MEDICAL HISTORY: Crohn's disease PAST SURGICAL HISTORY: no significant history FAMILY HISTORY: no pertinant history SOCIAL HISTORY: Pt lives with family and is employed. MEDICATIONS: reviewed ALLERGIES: As per nursing notes Review of Systems General: No fevers or chills, no weakness, no weight loss HEENT: No change in vision. No sore throat,. No ear pain CardioVascular: No chest pain or shortness of breath Respiratory:No cough, or wheezing. Gastrointestinal: + nausea, + vomitting, no diarrhea or constipation, No rectal bleeding Genitourinary: No dysuria, hematuria, or frequency Musculoskeletal: No joint or muscle pain or swelling Neurologic: No headache, vertigo, dizziness or loss of consciousness Psychiatric: nor depression Skin: No rashes or easy bruising Endocrine: no increased thirst or abnormal weight change Allergic: no skin or latex allergy All other systems reviewed and normal Exam: General: Well-nourished well-developed individual, no acute distress HEENT: Throat: Normal, tonsils normal, no erythema or exudate Neck: Supple, no meningeal signs, no lymphadenopathy Eyes::Pupils equal reactive and round, extraocular motion intact Chest: Nontender to palpation Cardiac: S1-S2 normal, regular rate and rhythm, no murmurs rubs or gallops Respiratory: Lungs clear to auscultation bilateral Abdomen: Soft, nondistended, normal bowel sounds, tender to palpation diffusely , no guarding or rebound Extremities: Warm, dry, no cyanosis, clubbing, or edema Skin: No rashes Neuro: Alert and oriented x3, CN II - XII intact, nonfocal exam with normal strength, normal sensation, normal reflexes, normal gait, Psych: Normal mood and affect Medical decision making this is a 42-year-old female who goes to emergency departments frequently for abdominal pain and dilated pain medication for her pain. In discussion with patient it appears that she goes about once a month for this problem. Patient was treated by me twice in the past and had a negative workup. Patient does have a history of Crohn's and has had 4 different abdominal surgeries a number years ago but recently over the last 4-5 years has not required any surgery. Will obtain workup including CBC, comp, flat and upright x-ray We'll give patient 1 mg of Dilaudid and some IV fluids and Benadryl Will reassess and review workup 09/18/17 00:55 Patient still expresses some discomfort however she's had no further vomiting and does appear to be much more comfortable Patient's flat and upright is negative for any acute pathology there is no evidence of obstruction if anything there is a possibility of bowel gas with increased stool there may be a constipation component to patient's pain Patient had a normal white count there is no left shift and normal chemistries Patient has bilateral did and oxycodone at home which she can take in addition to that she also has Zofran. Patient discharged home told to follow-up with Dr. Nicole in the morning Past History - Past Medical History Allergies/Adverse Reactions: Allergies Allergy/AdvReac Type Severity Reaction Status Date / Time NSAIDS (Non-Steroidal Allergy Verified 03/16/17 21:38 Anti-Inflamma sumatriptan [From Imitrex] Allergy Verified 03/16/17 21:38 sumatriptan succinate Allergy Verified 03/16/17 21:38 [From Imitrex] Home Medications: Ambulatory Orders Mercaptopurine [Purinethol -] 75 mg PO DAILY 03/03/17 Mesalamine [Apriso] 0.375 gm PO DAILY 03/03/17 Lansoprazole [Prevacid] 30 mg PO DAILY 09/18/17 Oxycodone HCl/Acetaminophen [Percocet 5-325 mg Tablet] 1 tab PO Q6H 09/18/17 - Suicide/Smoking/Psychosocial Hx Smoking History: Never smoked Have you smoked in the past 12 months: No Hx Alcohol Use: No Drug/Substance Use Hx: No Substance Use Type: None ED Treatment Course - LABORATORY CBC & Chemistry Diagram: 09/18/17 00:01 09/18/17 00:01 *DC/Admit/Observation/Transfer Diagnosis at time of Disposition: Abdominal pain Qualifiers: Abdominal location: generalized Qualified Code(s): R10.84 - Generalized abdominal pain - Discharge Dispostion Disposition: HOME Condition at time of disposition: Good Admit: No - Referrals Referrals: Frank Nicole MD [Primary Care Provider] - - Patient Instructions Additional Instructions: Take your pain medication at home as needed for the pain,. Take the Zofran as prescribed for nausea and vomiting However your x-ray shows that there is some constipation. Your pain may be secondary to the constipation in that case the opioids will make it worse. Follow-up with Dr. Nicole today if you still have any pain or discomfort.. Continue any medications as previously prescribed by your physician. . Please make sure your doctor reviews the results of your emergency evaluation. Thank you for coming to the Emergency Department today for your care. It was a pleasure to see you today. Please note that your evaluation is INCOMPLETE until you follow-up with your doctor. - Post Discharge Activity
[2017-09-18 00:01] VITALS: BP 133/63; PULSE 90; TEMP 97.5; BMI 21.4
[2017-09-18] MEDS ORDERED: HYDROmorphone HCL CARPU-JECT 1 MG/1 ML DISP.SYRIN IVPUSH ONE ×2 (00:09→01:08)
[2017-09-18] MEDS ORDERED: SODIUM CHLORIDE 1,000 ML IV ONE (00:10)
[2017-09-18] MEDS ORDERED: HYDROmorphone HCL CARPU-JECT 1 MG/1 ML DISP.SYRIN ONE ×2 (00:18→01:11)
[2017-09-18] MEDS ORDERED: ONDANSETRON 4 MG/2 ML VIAL ONE (00:18)
[2017-09-18 00:41] LABS: BASO % 0.6 % (0-2.0); EOS % 0.9 % (0-4.5); HEMATOCRIT 35.3 % (32.4-45.2); HEMOGLOBIN 11.9 GM/dL (10.7-15.3); LYMPH % 30.4 % (8-40); MCHC 33.8 g/dl (32.0-36.0); MEAN CELL VOLUME 88.6 fl (80-96); MEAN PLT VOLUME 7.2 fl (7.5-11.1); MONO % 8.8 % (3.8-10.2); NEUT % 59.3 % (42.8-82.8); PLATELET COUNT 332 K/MM3 (134-434); RBC 3.99 M/mm3 (3.60-5.2); RDW 15.8 % (11.6-15.6); WHITE BLOOD COUNT 5.5 K/mm3 (4.0-10.0)
[2017-09-18] MEDS ORDERED: HYOSCYAMINE SULFATE 0.125 MG TABLET PO STA (00:58)
[2017-09-18] MEDS ORDERED: HYOSCYAMINE SULFATE 0.125 MG *ODT ONE (01:01)
[2017-09-18 01:20] LABS: ALBUMIN 3.7 g/dl (3.4-5.0); ALK PHOS 50 U/L (45-117); ANION GAP 11 (8-16); BILIRUBIN,TOTAL 0.2 mg/dL (0.2-1.0); BLOOD UREA NITROGEN 11 mg/dL (7-18); CALCIUM 9.5 mg/dL (8.5-10.1); CHLORIDE 104 mmol/L (98-107); CO2 27 mmol/L (21-32); CREATININE 0.6 mg/dL (0.55-1.02); GLUCOSE,RANDOM 121 mg/dL (74-106); POTASSIUM 4.2 mmol/L (3.5-5.1); SGOT/AST 27 U/L (15-37); SGPT/ALT 39 U/L (12-78); SODIUM 142 mmol/L (136-145); TOT PROT 6.9 g/dl (6.4-8.2)
== END 2017-09-18 01:27 | disposition home or self-care (01) ==
LOC: FER 23:47
PROC: 3E033GC Introduction of Other Therapeutic Substance into Peripheral Vein, Percutaneous Approach (ICD-10-PCS; principal; 2017-09-17)
PROC: 3E033NZ Introduction of Analgesics, Hypnotics, Sedatives into Peripheral Vein, Percutaneous Approach (ICD-10-PCS; 2017-09-17)
PROC: 3E0337Z Introduction of Electrolytic and Water Balance Substance into Peripheral Vein, Percutaneous Approach (ICD-10-PCS; 2017-09-17)
DX: R10.84 Generalized abdominal pain (principal)
CPT/HCPCS: 36415; 74019-TC-FY; 80053; 83690; 85025; 99283-25; J7030

== ENCOUNTER 2018-03-10 05:50 | Emergency (ER) | payer OTHER ==
--- NOTE | 2018-03-10 05:58 | PDOC ---
History of Present Illness - General Chief Complaint: Pain, Acute Stated Complaint: VOMITING, ABDOMINAL PAIN Time Seen by Provider: 03/10/18 05:56 History Source: Patient Exam Limitations: No Limitations - History of Present Illness Initial Comments: 03/10/18 06:08 This is a 42-year-old female who has a history of Crohn's disease. Patient has been here on multiple occasions in the past. Patient has had multiple negative workups for her abdominal pain nausea and vomiting. Patient comes in again this morning complaining of nausea vomiting and abdominal pain. Last time she was here I saw her and spoke with her GI doctor who recommends that we go ahead and give her 1 mg of Dilaudid, IV hydration and antiemetics. If her workup is negative go ahead and discharge her and he will follow-up with her. Patient symptoms are her last said she also has gone to her STRINGS TEACHER who feels that a big part of what is happening is secondary to her menstrual cycle. Patient is on day 2 of her menstrual cycle and said that this is usually when it happens. Patient is being evaluated by her STRINGS TEACHER for possible depo shots to see if that will help. Patient said she has had symptoms for about 6 hours. Patient does have oxycodone at home which she said she took prior to coming in. PAST MEDICAL HISTORY: no significant history PAST SURGICAL HISTORY: no significant history FAMILY HISTORY: no pertinant history SOCIAL HISTORY: Pt lives with family and is employed. MEDICATIONS: reviewed ALLERGIES: As per nursing notes ROS General: No fevers or chills, no weakness, no weight loss HEENT: No change in vision. No sore throat,. No ear pain CardioVascular: No chest pain or shortness of breath Respiratory:No cough, or wheezing. Gastrointestinal: +abd pain, + nausea, +vomiting, no diarrhea or constipation, No rectal bleeding Genitourinary: No dysuria, hematuria, or frequency Musculoskeletal: . No joint pain or swelling Neurologic: No headache, vertigo, dizziness or loss of consciousness Psychiatric: nor depression Skin: No rashes or easy bruising Endocrine: no increased thirst or abnormal weight change Allergic: no skin or latex allergy All other systems reviewed and normal Exam: General: Well-nourished well-developed individual, no acute distress HEENT: Throat: Normal, tonsils normal, no erythema or exudate Neck: Supple, no meningeal signs, no lymphadenopathy Eyes::Pupils equal reactive and round, extraocular motion intact Chest: Nontender to palpation Cardiac: S1-S2 normal, regular rate and rhythm, no murmurs rubs or gallops Respiratory: Lungs clear to auscultation bilateral Abdomen: Soft, nondistended, normal bowel sounds, there is diffuse tenderness on palpation with more discomfort on palpation of the lower abdomen. Extremities: Warm, dry, no cyanosis, clubbing, or edema Skin: No rashes Neuro: Alert and oriented x3, CN II - XII intact, nonfocal exam with normal strength, normal sensation, normal reflexes, normal gait, Psych: Normal mood and affect Medical decision making this is a 42-year-old female who comes in with abdominal pain nausea and vomiting. Patient has history of similar symptoms in the past with multiple negative workups. Patient was given Dilantin and Zofran and is being hydrated. A workup is in progress including flat and upright abdomen and labs. Patient has a GI doctor as well as a OB doctor that she follows up with and can see her and evaluate her later today if she is able to be discharged. I pulled the patient's prescription drug history and she was given 50 tablets of oxycodone 2 days ago so she should have enough medication at home to manage her pain if her workup is otherwise negative 03/10/18 07:00 Care of this patient was transferred to Dr. Harmon at 7 AM. Patient's workup is all pending Case discussed in detail with oncoming Emergency Physician including history, physical exam and ancillary studies. Oncoming Emergency Physician has assumed care for the patient and will complete the evaluation and treatment. Patient is aware of the plan. Pt is clinically unchanged and stable. Past History - Past Medical History Allergies/Adverse Reactions: Allergies Allergy/AdvReac Type Severity Reaction Status Date / Time NSAIDS (Non-Steroidal Allergy Verified 03/10/18 05:54 Anti-Inflamma sumatriptan [From Imitrex] Allergy Verified 03/10/18 05:54 sumatriptan succinate Allergy Verified 03/10/18 05:54 [From Imitrex] Home Medications: Ambulatory Orders Mercaptopurine [Purinethol -] 75 mg PO DAILY 03/03/17 Mesalamine [Apriso] 0.375 gm PO DAILY 03/03/17 Lansoprazole [Prevacid] 30 mg PO DAILY 04/12/18 Oxycodone HCl/Acetaminophen [Percocet 5-325 mg Tablet] 1 tab PO Q6H 09/18/17 COPD: No - Surgical History GI Surgery: Yes (4 BOWEL RESECTIONS) - Suicide/Smoking/Psychosocial Hx Smoking History: Never smoked Have you smoked in the past 12 months: No Number of Cigarettes Smoked Daily: 0 Hx Alcohol Use: No Drug/Substance Use Hx: No Substance Use Type: None ED Treatment Course - LABORATORY CBC & Chemistry Diagram: 03/10/18 06:15 03/10/18 06:15 *DC/Admit/Observation/Transfer Diagnosis at time of Disposition: Abdominal pain Qualifiers: Abdominal location: unspecified location Qualified Code(s): R10.9 - Unspecified abdominal pain - Discharge Dispostion Disposition: HOME Condition at time of disposition: Stable - Referrals Referrals: Дмитрий Guevara MD [Staff Physician] - - Patient Instructions Printed Discharge Instructions: DI for Abdominal Pain-Adult Additional Instructions: Ms Ramirez Thank you for coming in to the ER today please be sure to follow up with your physicians Please also consider following up with a pain management physician (name provided in your discharge paperwork) Return for fevers, chills, intractable vomiting - Post Discharge Activity
[2018-03-10] MEDS ORDERED: ONDANSETRON 4 MG/2 ML VIAL IVPB ONE (06:03)
[2018-03-10] MEDS ORDERED: HYDROmorphone HCL CARPU-JECT 1 MG/1 ML DISP.SYRIN IVPUSH ONE (06:03)
[2018-03-10] MEDS ORDERED: SODIUM CHLORIDE 1,000 ML IV ONE (06:03)
[2018-03-10 06:32] VITALS: BMI 21.4
[2018-03-10] MEDS ORDERED: SODIUM CHLORIDE 1,000 ML IV STA (07:17)
--- NOTE | 2018-03-10 07:31 | PDOC ---
*Physical Exam - Vital Signs Last Vital Signs Temp Pulse Resp BP Pulse Ox 97.2 F L 76 16 136/62 100 03/10/18 06:21 03/10/18 06:21 03/10/18 06:21 03/10/18 06:21 03/10/18 06:21 ED Treatment Course - LABORATORY CBC & Chemistry Diagram: 03/10/18 06:15 03/10/18 06:15 - Medications Given in the ED: ED Medications Discontinued Medications Generic Name Dose Route Start Last Admin Trade Name Amy PRN Reason Stop Dose Admin Diphenhydramine HCl 25 mg 03/10/18 06:11 03/10/18 06:20 Benadryl Injection - IVPUSH 03/10/18 06:12 25 mg ONCE ONE Administration Hydromorphone HCl 1 mg 03/10/18 06:03 03/10/18 06:05 Dilaudid Injection - IVPUSH 03/10/18 06:04 1 mg ONCE ONE Administration Sodium Chloride 1,000 mls @ 1,000 mls/hr 03/10/18 06:03 03/10/18 06:05 Normal Saline - IV 03/10/18 07:02 1,000 mls/hr .Q1H ONE Administration Ondansetron HCl 8 mg 03/10/18 06:03 03/10/18 06:05 Zofran Injection IVPB 03/10/18 06:04 8 mg ONCE ONE Administration Medical Decision Making - Medical Decision Making 03/10/18 07:25 I received this patient on sign out Briefly, she has recurrent visits for abdominal pain She presented again last night for the same (+) vomiting (+) abdominal pain Despite bine prescribed 50 tablets of percocet 12 days ago (see below) currently undergoing a work up for pelvic pain (given her symptoms seem to coincide with her menses) Pt requests dilaudid IV Pt refused CT scan (due to prior repeated CT scans) Accepts Xray - which is similar to prior On sign out, she is pending: Labs Xray Xray: Demonstrates a paucity of bowel gas, no air fluid levels When told that I can no longer give Dilaudid, pt states she has complained to the head of the department that "You all don't care about patients here and you all don't treat patient's pain" Pt then began calling her GI doctor repeatedly (who prescribed the Percocet which was filled 5 days ago) who told her that if the pain medications she was given don't help, she should got to the ER and request narcotic medications Pt refused UA Pt refused Vital signs We are unable to evaluate cause of her leukocytosis Patient Name: Kala Ramirez Date: 1975 Address: [address] [place] [address] Sex: Female Rx Written Rx Dispensed Drug Quantity Days Supply Prescriber Name 02/26/2018 03/06/2018 hydrocodone-acetaminophen 5-325 mg tablet 50 14 Frank Nicole A, MD 10/06/2017 10/09/2017 hydrocodone-acetaminophen 5-325 mg tablet 90 22 Frank Nicole A, MD 09/03/2017 09/06/2017 hydrocodone-acetaminophen 5-325 mg tablet 90 23 Frank Nicole A, MD 06/03/2017 06/13/2017 codeine-guaifen 10-100 mg/5 ml 50ml 10 Frank Nicole A, MD 03/10/18 07:50 Laboratory Tests 03/10/18 06:15 Sodium 139 Potassium 3.9 Chloride 103 BUN 9 Creatinine 0.8 Random Glucose 124 H AST 20 ALT 24 Lipase 167 03/10/18 08:06 Laboratory Tests 09/18/17 03/10/18 00:01 06:15 WBC 5.5 16.3 H Hgb 11.9 14.3 Hct 35.3 42.7 D Plt Count 332 302 Neutrophils % 87.8 H D 03/10/18 08:28 Pt requested that we call Dr Nicole's cell phone He tells me that he does not believe she is a drug seeking patient He states that she only uses narcotic medications once per month, she does not use all the narcotics she is prescribed I will give this patient a single dose of Dilaudid 1 mg IV Will discharge to home Clinical Impression: chronic abdominal pain, initial presentation *DC/Admit/Observation/Transfer Diagnosis at time of Disposition: Abdominal pain Qualifiers: Abdominal location: unspecified location Qualified Code(s): R10.9 - Unspecified abdominal pain - Discharge Dispostion Disposition: HOME Condition at time of disposition: Stable Decision to Admit order: No - Referrals Referrals: Дмитрий Guevara MD [Staff Physician] - - Patient Instructions Printed Discharge Instructions: DI for Abdominal Pain-Adult Additional Instructions: Ms ParrishJames Thank you for coming in to the ER today please be sure to follow up with your physicians Please also consider following up with a pain management physician (name provided in your discharge paperwork) Return for fevers, chills, intractable vomiting - Post Discharge Activity
[2018-03-10 07:37] LABS: BASO % 0.2 % (0-2.0); EOS % 0.1 % (0-4.5); HEMATOCRIT 42.7 % (32.4-45.2); HEMOGLOBIN 14.3 GM/dL (10.7-15.3); LYMPH % 4.8 % (8-40); MCH 32.5 pg (25.7-33.7); MCHC 33.5 g/dl (32.0-36.0); MEAN CELL VOLUME 97.1 fl (80-96); MEAN PLT VOLUME 7.5 fl (7.5-11.1); MONO % 7.1 % (3.8-10.2); NEUT % 87.8 % (42.8-82.8); PLATELET COUNT 302 K/MM3 (134-434); RDW 13.5 % (11.6-15.6); WHITE BLOOD COUNT 16.3 K/mm3 (4.0-10.0)
[2018-03-10 07:40] LABS: ALBUMIN 3.9 g/dl (3.4-5.0); ALK PHOS 43 U/L (45-117); ANION GAP 9 MMOL/L (8-16); BILIRUBIN,TOTAL 0.4 mg/dL (0.2-1); BLOOD UREA NITROGEN 9 mg/dL (7-18); CALCIUM 9.1 mg/dL (8.5-10.1); CHLORIDE 103 mmol/L (98-107); CO2 27 mmol/L (21-32); CREATININE 0.8 mg/dL (0.55-1.3); GLUCOSE,RANDOM 124 mg/dL (74-106); LIPASE 167 U/L (73-393); POTASSIUM 3.9 mmol/L (3.5-5.1); SGOT/AST 20 U/L (15-37); SGPT/ALT 24 U/L (13-61); SODIUM 139 mmol/L (136-145); TOT PROT 6.8 g/dl (6.4-8.2)
[2018-03-10] MEDS ORDERED: HYDROmorphone HCL CARPU-JECT 1 MG/1 ML DISP.SYRIN IVPB ONE (08:28)
[2018-03-10 08:32] VITALS: BP 121/62; PULSE 72; TEMP 98.4
[2018-03-10] MEDS ORDERED: HYDROmorphone HCL CARPU-JECT 1 MG/1 ML DISP.SYRIN ONE (08:35)
== END 2018-03-10 09:25 | disposition home or self-care (01) ==
LOC: FER 05:50
PROC: 3E033GC Introduction of Other Therapeutic Substance into Peripheral Vein, Percutaneous Approach (ICD-10-PCS; principal; 2018-03-10)
PROC: 3E033NZ Introduction of Analgesics, Hypnotics, Sedatives into Peripheral Vein, Percutaneous Approach (ICD-10-PCS; 2018-03-10)
PROC: 3E0337Z Introduction of Electrolytic and Water Balance Substance into Peripheral Vein, Percutaneous Approach (ICD-10-PCS; 2018-03-10)
DX: R10.9 Unspecified abdominal pain (principal); K50.90 Crohn's disease, unspecified, without complications
CPT/HCPCS: 36415; 74019-TC-FY; 80053; 83690; 84703; 85025; 99282-25; J7030

== ENCOUNTER 2018-06-21 22:10 | Emergency (ER) | payer OTHER ==
--- NOTE | 2018-06-21 22:19 | PDOC ---
History of Present Illness - General History Source: Patient Exam Limitations: No Limitations - History of Present Illness Initial Comments: 06/21/18 22:42 The patient is a 42 year old female with a significant PMH of Crohns disease who presents to the emergency department with chronic abdominal pain since earlier this evening. The patient reports that she experienced her sudden onset of abdominal pain prior to arrival to the ED. The patient was sent in by her doctor for pain management. The patient has been seen in the ED in the past for similar complaints secondary to adhesions from abdominal surgeries. The patient denies any other symptoms or complaints. PAST MEDICAL HISTORY: no significant history PAST SURGICAL HISTORY: no significant history FAMILY HISTORY: no pertinent history SOCIAL HISTORY: Pt lives with family and is employed. MEDICATIONS: reviewed ALLERGIES: As per nursing notes General: No fevers or chills, no weakness, no weight loss HEENT: No change in vision. No sore throat,. No ear pain CardioVascular: No chest pain or shortness of breath Respiratory:No cough, or wheezing. Gastrointestinal: (+)abdominal pain. no nausea, vomiting, diarrhea or constipation, No rectal bleeding Genitourinary: No dysuria, hematuria, or frequency Musculoskeletal: No joint or muscle pain or swelling Neurologic: No headache, vertigo, dizziness or loss of consciousness Psychiatric: nor depression Skin: No rashes or easy bruising Endocrine: no increased thirst or abnormal weight change Allergic: no skin or latex allergy All other systems reviewed and normal General: (+)mild-moderate discomfort. Well-nourished well-developed individual, no acute distress HEENT: Throat: Normal, tonsils normal, no erythema or exudate Neck: Supple, no meningeal signs, no lymphadenopathy Eyes::Pupils equal reactive and round, extraocular motion intact Chest: Nontender to palpation Cardiac: S1-S2 normal, regular rate and rhythm, no murmurs rubs or gallops Respiratory: Lungs clear to auscultation bilateral Abdomen: (+)mild tenderness. Soft, normal bowel sounds, no guarding. No rebounds Extremities: Warm, dry, no cyanosis, clubbing, or edema Skin: No rashes Neuro: Alert and oriented x3, nonfocal exam, grossly intact, normal gait Psych: Normal mood and affect Documentation prepared by Nichelle Paz, acting as medical asst for Pérez Albert MD. <Nichelle Paz - Last Filed: 06/21/18 23:03> - General History Source: Patient Exam Limitations: No Limitations <Pérez Albert I - Last Filed: 06/21/18 23:09> - General Chief Complaint: Pain, Acute Stated Complaint: ADHESIONS Time Seen by Provider: 06/21/18 22:12 Past History <Nichelle Paz - Last Filed: 06/21/18 23:03> - Past Medical History COPD: No - Surgical History GI Surgery: Yes (4 BOWEL RESECTIONS) - Suicide/Smoking/Psychosocial Hx Smoking History: Never smoked Have you smoked in the past 12 months: No Number of Cigarettes Smoked Daily: 0 Hx Alcohol Use: No Drug/Substance Use Hx: No Substance Use Type: None <Pérez Albert I - Last Filed: 06/21/18 23:09> - Past Medical History Allergies/Adverse Reactions: Allergies Allergy/AdvReac Type Severity Reaction Status Date / Time NSAIDS (Non-Steroidal Allergy Verified 06/21/18 22:14 Anti-Inflamma sumatriptan [From Imitrex] Allergy Verified 06/21/18 22:14 sumatriptan succinate Allergy Verified 06/21/18 22:14 [From Imitrex] Home Medications: Ambulatory Orders Mercaptopurine [Purinethol -] 75 mg PO DAILY 03/03/17 Mesalamine [Apriso] 0.375 gm PO DAILY 03/03/17 Lansoprazole [Prevacid] 30 mg PO DAILY 09/18/17 Oxycodone HCl/Acetaminophen [Percocet 5-325 mg Tablet] 1 tab PO Q6H 09/18/17 Hydrocodone/Acetaminophen [Vicodin 5-300 mg Tablet] 1 each PO PRN 06/21/18 *Physical Exam - Vital Signs Last Vital Signs Temp Pulse Resp BP Pulse Ox 97.8 F 82 16 127/82 100 06/21/18 22:33 06/21/18 22:33 06/21/18 22:33 06/21/18 22:33 06/21/18 22:33 <Nichelle Paz - Last Filed: 06/21/18 23:03> Moderate Sedation - Procedure Monitoring Vital Signs: Procedure Monitoring Vital Signs Temperature 97.8 F 06/21/18 22:33 Pulse Rate 82 06/21/18 22:33 Respiratory Rate 16 06/21/18 22:33 Blood Pressure 127/82 06/21/18 22:33 O2 Sat by Pulse Oximetry (%) 100 06/21/18 22:33 <Nichelle Paz - Last Filed: 06/21/18 23:03> ED Treatment Course - LABORATORY CBC & Chemistry Diagram: 06/21/18 22:30 06/21/18 22:30 - Medications Given in the ED: ED Medications Discontinued Medications Generic Name Dose Route Start Last Admin Trade Name Amy PRN Reason Stop Dose Admin Diphenhydramine HCl 25 mg 06/21/18 22:19 06/21/18 22:36 Benadryl Injection - IVPUSH 06/21/18 22:20 25 mg ONCE ONE Administration Hydromorphone HCl 2 mg 06/21/18 22:36 06/21/18 22:37 Dilaudid Injection - IVPUSH 06/21/18 22:37 2 mg ONCE ONE Administration <Nichelle Paz - Last Filed: 06/21/18 23:03> - LABORATORY CBC & Chemistry Diagram: 06/21/18 22:30 06/21/18 22:30 <Pérez Albert I - Last Filed: 06/21/18 23:09> *DC/Admit/Observation/Transfer <Nichelle Paz - Last Filed: 06/21/18 23:03> - Discharge Dispostion Decision to Admit order: No <Pérez Albert I - Last Filed: 06/21/18 23:09> Diagnosis at time of Disposition: Abdominal pain Qualifiers: Abdominal location: lower abdomen, unspecified Qualified Code(s): R10.30 - Lower abdominal pain, unspecified - Discharge Dispostion Disposition: HOME Condition at time of disposition: Stable - Patient Instructions Additional Instructions: Continue your medications as prescribed. Return to the emergency department immediately with ANY new, persistent or worsening symptoms. Continue any medications as previously prescribed by your physician. You should follow up with your primary doctor as soon as possible regarding today's emergency department visit. . Please make sure your doctor reviews the results of your emergency evaluation. Thank you for coming to the Emergency Department today for your care. It was a pleasure to see you today. Please note that your evaluation is INCOMPLETE until you follow-up with your doctor.
[2018-06-21] MEDS ORDERED: HYDROmorphone HCL CARPU-JECT 2 MG/1 ML DISP.SYRIN ONE (22:25)
[2018-06-21 22:36] VITALS: TEMP 97.8; BMI 21.4
[2018-06-21] MEDS ORDERED: HYDROmorphone HCL CARPU-JECT 1 MG/1 ML DISP.SYRIN IVPUSH ONE ×2 (22:36→23:27)
[2018-06-21 22:49] LABS: BASO % 0.2 % (0-2.0); EOS % 0.5 % (0-4.5); HEMATOCRIT 44.6 % (32.4-45.2); LYMPH % 15.1 % (8-40); MCH 32.4 pg (25.7-33.7); MCHC 33.6 g/dl (32.0-36.0); MEAN CELL VOLUME 96.3 fl (80-96); MEAN PLT VOLUME 7.3 fl (7.5-11.1); MONO % 6.9 % (3.8-10.2); NEUT % 77.3 % (42.8-82.8); PLATELET COUNT 382 K/MM3 (134-434); RBC 4.63 M/mm3 (3.60-5.2); RDW 12.5 % (11.6-15.6); WHITE BLOOD COUNT 9.3 K/mm3 (4.0-10.8)
[2018-06-21 22:57] LABS: ALBUMIN 4.1 g/dl (3.5-5.0); ALK PHOS 44 U/L (32-92); ANION GAP 11 MMOL/L (8-16); BILIRUBIN,TOTAL 0.4 mg/dl (0.2-1.0); BLOOD UREA NITROGEN 12 mg/dl (7-18); CALCIUM 9.3 mg/dl (8.4-10.2); CHLORIDE 104 mmol/L (98-107); CO2 23 mmol/L (22-28); CREATININE 0.7 mg/dl (0.6-1.3); GLUCOSE,RANDOM 108 mg/dl (74-106); POTASSIUM 3.6 mmol/L (3.5-5.1); SGOT/AST 20 U/L (10-42); SGPT/ALT 16 U/L (10-40); SODIUM 138 mmol/L (136-145); TOT PROT 6.9 g/dl (6.4-8.3)
[2018-06-21] MEDS ORDERED: SODIUM CHLORIDE 1,000 ML IV ONE (22:59)
[2018-06-21] MEDS ORDERED: HYDROmorphone HCL CARPU-JECT 1 MG/1 ML DISP.SYRIN ONE (23:28)
[2018-06-21 23:33] VITALS: BP 114/73; PULSE 94
== END 2018-06-21 23:39 | disposition home or self-care (01) ==
LOC: FER 22:10
PROC: 3E033GC Introduction of Other Therapeutic Substance into Peripheral Vein, Percutaneous Approach (ICD-10-PCS; principal; 2018-06-21)
PROC: 3E033NZ Introduction of Analgesics, Hypnotics, Sedatives into Peripheral Vein, Percutaneous Approach (ICD-10-PCS; 2018-06-21)
PROC: 3E0337Z Introduction of Electrolytic and Water Balance Substance into Peripheral Vein, Percutaneous Approach (ICD-10-PCS; 2018-06-21)
PROC: 3E0337Z Introduction of Electrolytic and Water Balance Substance into Peripheral Vein, Percutaneous Approach (ICD-10-PCS; 2018-06-21)
DX: R10.30 Lower abdominal pain, unspecified (principal)
CPT/HCPCS: 36415; 74019-TC-FY; 80053; 85025; 99282-25; J7030

== ENCOUNTER 2018-12-01 03:31 | Emergency (ER) | payer OTHER | END 2018-12-01 05:34 | disposition home or self-care (01) | LOC: FER 03:31 ==

== ENCOUNTER 2018-12-01 08:48 | Emergency (ER) | payer OTHER | END 2018-12-01 11:45 | disposition home or self-care (01) | LOC: FER 08:48 ==

== ENCOUNTER 2018-12-12 04:39 | Emergency (ER) | payer OTHER ==
[2018-12-12 04:48] VITALS: TEMP 97.3; BMI 21.4
--- NOTE | 2018-12-12 04:52 | PDOC ---
History of Present Illness - General Chief Complaint: Pain, Acute Stated Complaint: ABD PAIN Time Seen by Provider: 12/12/18 04:52 History Source: Patient Exam Limitations: No Limitations - History of Present Illness Initial Comments: 12/12/18 05:00 This is a 43-year-old female who has intermittent severe abdominal pain. Patient comes in intermittently for Dilaudid and Benadryl and medication for her pain. Patient says the etiology of her pain is intermittent obstruction. Patient was here approximately 10 days ago for similar symptoms. Which resolved with medication. Patient followed up with your doctor at and is being switched to a different medication which she as per her doctor should help with the problem. Otherwise patient is healthy. Allergies: as per nursing notes Past Medical History: none Social history: Lives with family. No smoking. No alcohol. No illicit drugs. Surgical history: None General: No fevers or chills, no weakness, no weight loss HEENT: No change in vision. No sore throat,. No ear pain CardioVascular: no chest discomfort. No shortness of breath Respiratory:No cough, or wheezing. Gastrointestinal: no nausea, vomiting, diarrhea or constipation, No rectal bleeding Genitourinary: No dysuria, hematuria, or frequency Musculoskeletal: No joint or muscle pain or swelling Neurologic: No headache, vertigo, dizziness or loss of consciousness Psychiatric: nor depression Skin: No rashes or easy bruising Endocrine: no increased thirst or abnormal weight change Allergic: no skin or latex allergy All other systems reviewed and normal Exam: General: Well-nourished well-developed individual, no acute distress HEENT: Throat: Normal, tonsils normal, no erythema or exudate Neck: Supple, no meningeal signs, no lymphadenopathy Eyes::Pupils equal reactive and round, extraocular motion intact Chest: Nontender to palpation Cardiac: S1-S2 normal, regular rate and rhythm, no murmurs rubs or gallops Respiratory: Lungs clear to auscultation bilateral Abdomen: Soft, nondistended, normal bowel sounds there is tenderness on palpation of the lower abdomen. There is no guarding or rebound Extremities: Warm, dry, no cyanosis, clubbing, or edema Skin: No rashes Neuro: Alert and oriented x3, CN II - XII intact, nonfocal exam with normal strength, normal sensation, normal reflexes, normal gait, Psych: Normal mood and affect Assessment and plan: This is a 43-year-old female comes in with lower abdominal pain nausea and vomiting. Patient is ALLERGIC to everything but Dilaudid and I will give her IV fluids Dilaudid and what she is feeling better discharge her home. CBC and comp were also sent. Past History - Past Medical History Allergies/Adverse Reactions: Allergies Allergy/AdvReac Type Severity Reaction Status Date / Time NSAIDS (Non-Steroidal Allergy Verified 12/01/18 08:49 Anti-Inflamma sumatriptan [From Imitrex] Allergy Verified 12/01/18 08:49 sumatriptan succinate Allergy Verified 12/01/18 08:49 [From Imitrex] Home Medications: Ambulatory Orders Mesalamine [Apriso] 0.375 gm PO DAILY 03/03/17 Lansoprazole [Prevacid] 30 mg PO DAILY 09/18/17 Hydrocodone/Acetaminophen [Vicodin 5-300 mg Tablet] 1 each PO PRN 06/21/18 Ustekinumab [Stelara] 0 mg SQ ASDIR 12/01/18 COPD: No GI Disorders: Yes (CHROHNS, ADHESIONS & CHRONIC PAIN) - Surgical History GI Surgery: Yes (4 BOWEL RESECTIONS) - Suicide/Smoking/Psychosocial Hx Smoking History: Never smoked Have you smoked in the past 12 months: No Number of Cigarettes Smoked Daily: 0 Hx Alcohol Use: No Drug/Substance Use Hx: No Substance Use Type: None *Physical Exam - Vital Signs Last Vital Signs Temp Pulse Resp BP Pulse Ox 97.3 F L 86 18 135/76 100 12/12/18 04:44 12/12/18 04:44 12/12/18 04:44 12/12/18 04:44 12/12/18 04:44 ED Treatment Course - LABORATORY CBC & Chemistry Diagram: 12/12/18 05:05 12/12/18 05:05 *DC/Admit/Observation/Transfer Diagnosis at time of Disposition: Abdominal pain - Discharge Dispostion Disposition: HOME Condition at time of disposition: Stable - Referrals - Patient Instructions Additional Instructions: Clear fluids as tolerated. Take your nausea medications as needed. Take the your other medications as prescribed. Return to the emergency department immediately with ANY new, persistent or worsening symptoms. Continue any medications as previously prescribed by your physician. You should follow up with your primary doctor as soon as possible regarding today's emergency department visit. . Please make sure your doctor reviews the results of your emergency evaluation. Thank you for coming to the Emergency Department today for your care. It was a pleasure to see you today. Please note that your evaluation is INCOMPLETE until you follow-up with your doctor. - Post Discharge Activity
[2018-12-12] MEDS ORDERED: SODIUM CHLORIDE 1,000 ML IV ONE (04:55)
[2018-12-12] MEDS ORDERED: HYDROmorphone HCL CARPU-JECT 1 MG/1 ML DISP.SYRIN IVPUSH ONE ×2 (04:56→10:19)
[2018-12-12] MEDS ORDERED: HYDROmorphone HCL CARPU-JECT 1 MG/1 ML DISP.SYRIN ONE ×2 (04:59→10:20)
[2018-12-12] MEDS ORDERED: ONDANSETRON 4 MG/2 ML VIAL ONE ×2 (05:12→10:20)
[2018-12-12 06:02] LABS: BASO % 0.2 % (0-2.0); HEMATOCRIT 42.7 % (32.4-45.2); HEMOGLOBIN 14.8 GM/dL (10.7-15.3); MCH 32.4 pg (25.7-33.7); MCHC 34.7 g/dl (32.0-36.0); MEAN CELL VOLUME 93.4 fl (80-96); MEAN PLT VOLUME 6.9 fl (7.5-11.1); MONO % 6.3 % (3.8-10.2); NEUT % 74.5 % (42.8-82.8); PLATELET COUNT 299 K/MM3 (134-434); RBC 4.57 M/mm3 (3.60-5.2); RDW 12.9 % (11.6-15.6); WHITE BLOOD COUNT 9.5 K/mm3 (4.0-10.0)
[2018-12-12 06:44] LABS: ALBUMIN 3.6 g/dl (3.4-5.0); BILIRUBIN,TOTAL 0.3 mg/dL (0.2-1); BLOOD UREA NITROGEN 10.5 mg/dL (7-18); CALCIUM 8.9 mg/dL (8.5-10.1); CREATININE 0.7 mg/dL (0.55-1.3); POTASSIUM 4.2 mmol/L (3.5-5.1); TOT PROT 6.4 g/dl (6.4-8.2)
[2018-12-12] MEDS ORDERED: ONDANSETRON 4 MG/2 ML VIAL IVPUSH ONE ×2 (07:12→10:18)
[2018-12-12] MEDS ORDERED: HYDROmorphone HCl 2 MG/ML VIAL ONE (08:06)
[2018-12-12] MEDS ORDERED: HYDROmorphone HCL CARPU-JECT 2 MG/1 ML DISP.SYRIN IVPUSH ONE (08:21)
[2018-12-12] MEDS ORDERED: SODIUM CHLORIDE 0.9% 1000 ML INFUS.BAG IV ONE (10:18)
[2018-12-12 10:19] VITALS: PULSE 80
[2018-12-12 10:35] LABS: EPITHELIAL CELLS FEW /hpf
[2018-12-12 11:49] VITALS: BP 118/68
== END 2018-12-12 11:56 | disposition home or self-care (01) ==
LOC: FER 04:39
PROC: 3E033GC Introduction of Other Therapeutic Substance into Peripheral Vein, Percutaneous Approach (ICD-10-PCS; principal; 2018-12-12)
PROC: 3E033NZ Introduction of Analgesics, Hypnotics, Sedatives into Peripheral Vein, Percutaneous Approach (ICD-10-PCS; 2018-12-12)
PROC: 3E0337Z Introduction of Electrolytic and Water Balance Substance into Peripheral Vein, Percutaneous Approach (ICD-10-PCS; 2018-12-12)
DX: R10.9 Unspecified abdominal pain (principal)
CPT/HCPCS: 36415; 74019-TC-FY; 80053; 81003; 81015; 81025; 85025; 99283-25; J7030

== ENCOUNTER 2018-12-12 18:27 | Emergency (ER) | payer OTHER ==
[2018-12-12] MEDS ORDERED: METOCLOPRAMIDE HCL INJECTION 10 MG/2 ML VIAL IVPUSH ONE (18:32)
[2018-12-12] MEDS ORDERED: SODIUM CHLORIDE 0.9% 1000 ML INFUS.BAG IV ONE (18:32)
[2018-12-12] MEDS ORDERED: FAMOTIDINE 20 MG/50 ML IVPB 20 MG/50 ML MG IVPB ONE ×2 (18:32→18:44)
[2018-12-12] MEDS ORDERED: HYDROmorphone HCL CARPU-JECT 2 MG/1 ML DISP.SYRIN IVPUSH ONE (18:33)
[2018-12-12 18:40] VITALS: BMI 23.4
[2018-12-12] MEDS ORDERED: METOCLOPRAMIDE HCL INJECTION 10 MG/2 ML VIAL ONE (18:44)
[2018-12-12] MEDS ORDERED: HYDROmorphone HCL CARPU-JECT 1 MG/1 ML DISP.SYRIN ONE (18:46)
[2018-12-12] MEDS ORDERED: HYDROmorphone HCl 2 MG/ML VIAL ONE (18:46)
--- NOTE | 2018-12-12 19:28 | PDOC ---
Documentation entered by Radha Van SCRIBE, acting as scribe for Arpita Booth DO. Arpita Booth DO: This documentation has been prepared by the Rehan garcia Aiswarya, SCRIBE, under my direction and personally reviewed by me in its entirety. I confirm that the documentation accurately reflects all work, treatment, procedures, and medical decision making performed by me. History of Present Illness - General Chief Complaint: Pain Stated Complaint: ABD PAIN Time Seen by Provider: 12/12/18 18:32 History Source: Patient Exam Limitations: No Limitations - History of Present Illness Initial Comments: 12/12/18 20:32 The patient is a 43 year old female, with a significant PMH of Crohn's and adhesions, who returns to the emergency department with worsened nausea and vomiting from this morning. The patient came to the ER in the morning and was discharged with a fleet enema and Miralax, no relief noted. She states she usually get theses symptoms every 3 to 6 months and is treated with Dilaudid 3mg with benadryl and Zofran(given this today, still no relief noted ) . Patient notes vomiting, constipation and nausea accompanied with lower abdomen pain specifically the lower right quadrant has persisted since this earlier today. Patients last bowel movement was 3 days ago. The patient denies chest pain, shortness of breath, headache and dizziness.Denies fever, chills, and diarrhea. Denies dysuria, frequency, urgency and hematuria. Allergies: NSAIDs, sumatriptan Past surgical history: 4 bowel resections, mesh repair of the hernia site, ALYSSA Social history: None reported PCP: GI- Dr. Nicole Past History - Past Medical History Allergies/Adverse Reactions: Allergies Allergy/AdvReac Type Severity Reaction Status Date / Time NSAIDS (Non-Steroidal Allergy Verified 12/12/18 18:28 Anti-Inflamma sumatriptan [From Imitrex] Allergy Verified 12/12/18 18:28 sumatriptan succinate Allergy Verified 12/12/18 18:28 [From Imitrex] Home Medications: Ambulatory Orders Mesalamine [Apriso] 0.375 gm PO DAILY 03/03/17 Lansoprazole [Prevacid] 30 mg PO DAILY 09/18/17 Hydrocodone/Acetaminophen [Vicodin 5-300 mg Tablet] 1 each PO PRN 06/21/18 Ustekinumab [Stelara] 0 mg IV ASDIR 12/01/18 COPD: No GI Disorders: Yes (CHROHNS, ADHESIONS & CHRONIC PAIN) - Surgical History GI Surgery: Yes (4 BOWEL RESECTIONS) - Suicide/Smoking/Psychosocial Hx Smoking History: Never smoked Have you smoked in the past 12 months: No Number of Cigarettes Smoked Daily: 0 Information on smoking cessation initiated: No Hx Alcohol Use: No Drug/Substance Use Hx: No Substance Use Type: None *Physical Exam - Vital Signs Last Vital Signs Temp Pulse Resp BP Pulse Ox 98.7 F 101 H 18 117/67 98 12/12/18 18:27 12/12/18 18:27 12/12/18 18:27 12/12/18 18:27 12/12/18 18:27 ED Treatment Course - RADIOLOGY Radiology Studies Ordered: Category Date Time Status ABDOMEN & PELVIS CT WITH CONTR [CT] Stat CT Scan 12/12/18 18:33 Ordered - Medications Given in the ED: ED Medications Discontinued Medications Generic Name Dose Route Start Last Admin Trade Name Amy PRN Reason Stop Dose Admin Diphenhydramine HCl 25 mg 12/12/18 18:46 12/12/18 19:15 Benadryl Injection - IVPUSH 12/12/18 18:47 25 mg ONCE ONE Administration Hydromorphone HCl 3 mg 12/12/18 18:33 12/12/18 18:55 Dilaudid Injection - IVPUSH 12/12/18 18:34 3 mg ONCE ONE Administration Famotidine/Sodium Chloride 20 mg in 50 mls @ 100 mls/hr 12/12/18 18:32 19:00 Pepcid 20 Mg Premixed Ivpb - IVPB 12/12/18 19:01 100 mls/hr ONCE ONE Administration Sodium Chloride 1,000 ml 12/12/18 18:32 12/12/18 19:00 Normal Saline - IV 12/12/18 18:33 1,000 ml ONCE ONE Administration Medical Decision Making - Medical Decision Making 12/12/18 19:25 a/p: 43yo female with hx of crohns with lower abd pain and persistent n/v at home -seen earlier today -gi dr. nicole -attempted use of fleet enema and miralax at home without having a bm and with persistent n/v -no obstruction seen on xray earlier -still with RLQ abd pain, hx of mesh repair of hernia site and multiple abd surgeries with bowel resection, ALYSSA -will send for ct abd/pelvis -pt with hx of needing dilaudid 3mg with benadryl and zofran which have been ordered for the patient -labs earlier without acute findigns -npo and ivf hydration ordered 12/12/18 19:27 upreg from earlier was negative 12/12/18 19:27 pt has been signed out to the oncoming ED physician pending ct imaging and pain control Pt and her were updated on the plan *DC/Admit/Observation/Transfer Diagnosis at time of Disposition: Crohn's disease, Abdominal pain - Discharge Dispostion Disposition: HOME Condition at time of disposition: Stable - Referrals Referrals: Frank Nicole MD [Primary Care Provider] - - Patient Instructions Additional Instructions: contact Dr Nicole tomorrow for possible course of methylnaltrexone and to arrange followup continue to drink plenty of fluids return to ER if you have vomiting/fever/severe pain - Post Discharge Activity
--- NOTE | 2018-12-12 23:06 | PDOC ---
*Physical Exam - Vital Signs Last Vital Signs Temp Pulse Resp BP Pulse Ox 98.7 F 101 H 18 117/67 98 12/12/18 18:27 12/12/18 18:27 12/12/18 18:27 12/12/18 18:27 12/12/18 18:27 ED Treatment Course - Medications Given in the ED: ED Medications Discontinued Medications Generic Name Dose Route Start Last Admin Trade Name Amy PRN Reason Stop Dose Admin Diphenhydramine HCl 25 mg 12/12/18 18:46 12/12/18 19:15 Benadryl Injection - IVPUSH 12/12/18 18:47 25 mg ONCE ONE Administration Hydromorphone HCl 3 mg 12/12/18 18:33 12/12/18 18:55 Dilaudid Injection - IVPUSH 12/12/18 18:34 3 mg ONCE ONE Administration Famotidine/Sodium Chloride 20 mg in 50 mls @ 100 mls/hr 12/12/18 18:32 19:00 Pepcid 20 Mg Premixed Ivpb - IVPB 12/12/18 19:01 100 mls/hr ONCE ONE Administration Metoclopramide HCl 10 mg 12/12/18 18:32 12/12/18 19:25 Reglan Injection - IVPUSH 12/12/18 18:33 10 mg ONCE ONE Administration Sodium Chloride 1,000 ml 12/12/18 18:32 12/12/18 19:00 Normal Saline - IV 12/12/18 18:33 1,000 ml ONCE ONE Administration Progress Note - Progress Note Progress Note: care of this patient received from Because of the patient's persistent abdominal discomfort associated with nausea/ vomiting, (flat and upright x-rays of the abdomen revealed no evidence of small bowel obstruction and laboratory evaluation less than 24 hours prior to presentation was normal) abdominal/pelvic CT performed Preliminary interpretation by Imaging retail sales associate seasonal: Small bowel within the central lower abdomen described as fluid filled and distended with distal bowel beyond surgical margin not well distended. Transition point appearing at the level of the terminal ileum. Findings in the small bowel may suggest partial versus early small bowel obstruction.Images reviewed with [facility] radiologist, Dr Diaz Results discussed with the patient and with patient's supervisor wood room, , by telephone: His feeling is that the patient's symptoms are primarily related to bowel motility issues secondary to chronic opiate use. Therefore, he suggested using methylnaltrexone if available tonight. Otherwise , he will prescribed oral dosing and follow-up with the patient. Methylnaltrexone for subcutaneous administration obtained and patient given 8 mg SQ (weight-based dose). The patient asked for a "mild" pain medication for her persistent discomfort ( which she admits is improved from the level that she felt on presentation). The fact that another dose of opiate medication may be counterproductive was discussed with the patient. After administration the methylnaltrexone, 8 mg SQ, patient states that she felt mildly nauseated briefly but no other significant side effects. She states that she had no sensation of needing to move her bowels. The patient had already arranged with her supervisor wood room to contact him by text tomorrow to arrange follow-up and also to possibly continue methylnaltrexone by mouth. She should return to the emergency room if she has fever/ severe, persistent pain or vomiting *DC/Admit/Observation/Transfer Diagnosis at time of Disposition: Crohn's disease, Abdominal pain - Discharge Dispostion Disposition: HOME Condition at time of disposition: Stable - Referrals Referrals: Frank Nicole MD [Primary Care Provider] - - Patient Instructions Additional Instructions: contact Dr Nicole tomorrow for possible course of methylnaltrexone and to arrange followup continue to drink plenty of fluids return to ER if you have vomiting/fever/severe pain - Post Discharge Activity
[2018-12-12 23:31] VITALS: BP 99/63; PULSE 88; TEMP 98.5
[2018-12-13] MEDS ORDERED: morphine CARPU-JECT 2 MG/1 ML DISP.SYRIN IVPUSH ONE (00:06)
[2018-12-13] MEDS ORDERED: morphine SULFATE 4 MG/ML VIAL ONE (00:09)
[2018-12-13] MEDS ORDERED: Methylnaltrexone Bromide 12 MG/0.6 ML KIT SQ SCH (10:00)
== END 2018-12-13 01:16 | disposition home or self-care (01) ==
LOC: FER 18:27
PROC: 3E023GC Introduction of Other Therapeutic Substance into Muscle, Percutaneous Approach (ICD-10-PCS; principal; 2018-12-12)
PROC: 3E033GC Introduction of Other Therapeutic Substance into Peripheral Vein, Percutaneous Approach (ICD-10-PCS; 2018-12-12)
PROC: 3E033NZ Introduction of Analgesics, Hypnotics, Sedatives into Peripheral Vein, Percutaneous Approach (ICD-10-PCS; 2018-12-12)
PROC: 3E0337Z Introduction of Electrolytic and Water Balance Substance into Peripheral Vein, Percutaneous Approach (ICD-10-PCS; 2018-12-12)
DX: K50.90 Crohn's disease, unspecified, without complications (principal); R10.9 Unspecified abdominal pain
CPT/HCPCS: 74177-TC; 99282-25; J7030

== ENCOUNTER 2022-02-12 04:08 | Day surgery (SDC) | payer OTHER ==
[2022-02-07 13:13] VITALS: BMI 21.4
[2022-02-12] MEDS ORDERED: DEXAMETHASONE SOD PHOSPHATE 4 MG/1 ML VIAL ONE ×2 (08:40→09:33)
[2022-02-12] MEDS ORDERED: ONDANSETRON 4 MG/2 ML VIAL ONE ×2 (08:40→09:33)
[2022-02-12] MEDS ORDERED: KETOROLAC TROMETHAMINE 30 MG/1 ML VIAL ONE ×2 (08:40→09:33)
[2022-02-12] MEDS ORDERED: LIDOCAINE HCL 2% 100 MG/5 ML DISP.SYRIN ONE (08:40)
[2022-02-12] MEDS ORDERED: MIDAZOLAM HCL 2 MG/2 ML SINGLE DOSE VIAL ONE ×2 (08:41→09:19)
[2022-02-12] MEDS ORDERED: PROPOFOL 20 ML ONE (08:41)
[2022-02-12] MEDS ORDERED: ELECTROLYTE-148 SOLN 1,000 ML IV SCH (10:00)
[2022-02-12] MEDS ORDERED: oxyCODONE HCL 5 MG TABLET PO PRN ×3 (10:00→10:09)
[2022-02-12] MEDS ORDERED: ONDANSETRON 4 MG/2 ML VIAL IVPUSH PRN ×2 (10:00→10:09)
[2022-02-12] MEDS ORDERED: PROMETHAZINE HCL 25 MG/1 ML VIAL IVPUSH PRN (10:09)
[2022-02-12] MEDS ORDERED: LACTATED RINGERS SOLUTION 1,000 ML IV SCH (10:15)
[2022-02-12] MEDS ORDERED: ACETAMINOPHEN INJECTION 100 ML IVPB ONE (10:25)
[2022-02-12] MEDS ORDERED: HYDROmorphone HCl 2 MG/ML VIAL ONE (10:28)
[2022-02-12] MEDS ORDERED: HYDROmorphone HCl 2 MG/ML VIAL IVPUSH ONE (10:32)
[2022-02-12] MEDS ORDERED: ACETAMINOPHEN 1000 MG/100 ML BAG IVPB ONE (10:32)
[2022-02-12 11:03] VITALS: RESP 18
[2022-02-12] MEDS ORDERED: oxyCODONE HCL 5 MG TABLET ONE (11:24)
[2022-02-12 13:07] VITALS: BP 128/86; PULSE 74; TEMP 97.1
== END 2022-02-12 12:05 | disposition home or self-care (01) ==
LOC: JASU-SURG 04:08 → EDSTATUS 10:00 → JASU-SURG 12:05
PROVIDERS: ATTEND Obstetrics & Gynecology
PROC: 0UDB7ZX Extraction of Endometrium, Via Natural or Artificial Opening, Diagnostic (ICD-10-PCS; 2022-02-12)
PROC: 0UB98ZX Excision of Uterus, Via Natural or Artificial Opening Endoscopic, Diagnostic (ICD-10-PCS; principal; 2022-02-12 09:00)
DX: N92.6 Irregular menstruation, unspecified (principal); N84.0 Polyp of corpus uteri
CPT/HCPCS: 81025; 88305-TC; 94760